=== PATIENT | female | born 1965 | race Caucasian/White ===

== ENCOUNTER 2019-12-10 09:00 | Inpatient (IN) ==
--- OUTSIDE RECORDS SUMMARY | 2019-12-10 12:06 | External Medical Summary | Continuity of Care Document ---
:1965 Author Name North Ramos, Provider Address Unavailable Unavailable , Care Team Providers Name Role Phone Unavailable Unavailable Unavailable VERENICE MCCLELLAND II Unavailable Unavailable Problems Hypertension (401.9) (I10) Migraines (346.90) (G43.909) Depression (311) (F32.9) Osteoarthritis (715.90) (M19.90) Prinzmetal's angina (413.1) (I20.1) Allergies and Adverse Reactions Allergy history not documented Medications traMADol HCl - 50 MG Oral Tablet; TAKE 2 TABLETS EVERY 6 ANGIE RS NEEDED , M.D. Refills: 0 Propranolol HCl ER 80 MG Oral Capsule Ex tended Release 24 Hour; TAKE 1 CAPSULE Daily , M.D. Refills: 0 clonazePAM 0.5 MG Oral Tablet , M.D. Refills: 0 FLUoxetine HCl - 20 MG Oral Capsule , M.D. Refills: 0 Ranexa 500 MG Oral Tablet Extended Relea se 12 Hour; TAKE 1 TABLET EVERY 12 HOURS. , M.D. Refills: 0 Pantoprazole Sodium 40 MG Oral Tablet Delayed Release; TAKE 1 TABLET DAILY. , M.D. Refills: 0 Norvasc 2.5 MG Oral Tablet; TAKE 1 TABLET DAILY. , M.D. Refills: 0 Lisinopril 20 MG Oral Tablet; TAKE 1 TABLET DAILY. , M.D. Refills: 0 Cymbalta CPEP; Take 90mg Daily , M.D. Refills: 0 Zyrtec TABS , M.D. Refills: 0 Multi-Vitamin TABS , M.D. Refills: 0 Effexor XR 75 MG Oral Capsule Extended Release 24 Hour ; TAKE 1 CAPSULE DAILY. , M.D. Refills: 0 Isosorbide Mononitrate ER TB24; TAKE 15MG DAILY , M.D. Refills: 0 Vitamin D3 TABS , M.D. Refills: 0 Procedures History of Hysterectomy Status: Complete d Immunizations DTaP On: 25-Nov-2014 Family History Unknown Family Member Family history of cerebrovascular accident Status: Active Comments: Family History (CVA) (V17.1) (Z82.3) Family history of hypertension (V17.49) Status: Active Comments: Family History (Z82.49) Family history of diabetes mellitus (V18.0) Status: Active Comments: Family History (Z83.3) Family history of spinal stenosis (V17.89) Status: Active Comments: Family History (Z82.69) Father Family history of cerebrovascular accident (CVA) (V17.1) (Z8 2.3) Status: Active Mother Family history of hypertension (V17.49) (Z82.49) Status: Act xin Family history of diabetes mellitus (V18.0) (Z83.3) Status: Active Family history of spinal stenosis (V17.89) (Z82.69) Status: Active Social History - Smoking Status Never smoker Plan of Treatment Planned Observations Planned Goals not documented Results No Known Results Results not documented
[2019-12-10] MEDS ORDERED: ACETAMINOPHEN 325 MG TAB PO PRN (12:46)
[2019-12-10] MEDS ORDERED: ONDANSETRON INJ 2 MG/ML 2 ML VIAL IV PRN (12:46)
--- NOTE | 2019-12-10 13:27 | History & Physical Report ---
Date of Service December 10, 2019 Assessment & Plan (1) Surgical site infection: I have indicated the patient for superficial vs deep I+D right hip, possible revision total hip arthroplasty with head and liner exchange. The risks, benefits and complications of surgery were explained to the patient which include but not limited to infection, acute blood loss, DVT/PE, injury to nerves, vessels, bone, soft tissue, arthrofibrosis, chronic pain, failure of the prosthesis, hip dislocation, leg length discrepancy, need for additional surgery, cardiac and pulmonary events and . The patient wished to proceed with surgery and informed consent was obtained at this time. Hold anticoagulation Hold antibiotics till surgical cultures and tissue samples taken NPO after midnight in anticipation for surgery 12/11/19 History of Present Illness Chief Complaint: Right hip surgical site infection, wound dehiscence Primary Care Provider: Angus Conner The patient is a 53-year-old female who presents with worsening draining from right hip surgical wound. Patient had recent right posterior total hip arthroplasty performed 11/14/[address] eMdrano [place] [facility] [place] The patient had an uneventful postoperative period however, she reports that shazia removed at 2 week and subsequently developed drainage from the incision which has worsened while taking duricef. She was seen in the office 12/09/19 at the request of Dr. Medrano secondary to unavailability to see or care for the patient. Currently the patient denies F/C/N/V/SOB/CP. Denies pain to right hip or trauma. The decision was made to have the patient directly admitted to [facility] for medical optimization and superficial vs deep I+D right hip with possible head and liner exchange. Allergies Allergy/AdvReac Type Severity Reaction Status Date / Time morphine AdvReac Mild itching Verified 12/10/19 15:49 Home Medications Home Medications Medication Instructions Recorded Confirmed Type amitriptyline 25 mg PO DAILY 12/10/19 12/10/19 History amlodipine 2.5 mg PO DAILY 12/10/19 12/10/19 History bupropion HCl 300 mg PO DAILY 12/10/19 12/10/19 History duloxetine 60 mg PO DAILY 12/10/19 12/10/19 History gabapentin 100 mg PO TID 12/10/19 12/10/19 History propranolol 80 mg PO DAILY 12/10/19 12/10/19 History tramadol 50 mg PO Q6H 12/10/19 12/10/19 History Past Med/Surg History Medical History Angina pectoris (~2016) Follow's Dr. Turner Surgical History History of section History of hysterectomy Family History Other Family history of diabetes mellitus ICD (implantable cardioverter-defibrillator) in place Social History Preferred Language: Swedish Communication Ability: Effective Beliefs That Will Affect Care: None marital status: Current Living Situation: Spouse Other Information That Helps Us Care for You: No Feels Safe at Home: Yes Safety Concerns: Feels Safe At This Time Smoking Status: Never smoker Hx Alcohol Use: No Hx Substance Use: No Review of Systems Review of Systems: All systems reviewed & are unremarkable except as noted in HPI & below Constitutional: as per Subjective / HPI Physical Exam Physical Exam: RLE NVSI +EHL/FHL/TA/GS SILT grossly, +2 DP pulse, compartments soft NT, 2cm dehiscence distal aspect of the incision with copious serious drainage. Constitutional: WD/WN, vitals as above Eyes: PERRL, conjunctivae normal, anicteric sclerae ENMT: external ear and nose normal, oropharynx normal Neck: trachea midline, no thyromegaly Respiratory: normal respiratory effort, lungs clear to auscultation Cardiovascular: RRR, no murmur, no edema Gastrointestinal (Abdomen): normal bowel sounds, soft, nontender, no hepatosplenomegaly Musculoskeletal: no cyanosis or clubbing, extremities motor strength 5/5 Skin: no rashes, warm and dry Neurologic: patellar DTR's 2+ bilat, sensation intact Psychiatric: A+Ox3, euthymic affect Lymphatic: no cervical or axillary lymphadenopathy Results & Data Vital Signs (Past 12 Hours) Vital Signs Temp Pulse Resp BP Pulse Ox 12/10/19 12:10 36.3 C L 67 12 123/85 99 Laboratory Results XRs taken at [facility] demonstrate well aligned well fixed total hip prothesis without signs for osteomyelitis, loosening or subsidence, fracture or dislocation Code Status & VTE Plan VTE Prophylaxis Plan VTE Prophylaxis will be ordered: Yes
--- NOTE | 2019-12-10 14:03 | XRay Report ---
XR chest 2V PA/lateral CLINICAL HISTORY: preop preoperative evaluation COMPARISON STUDY: No previous studies for comparison. FINDINGS: The bones soft tissues and hemidiaphragms are normal. The cardiomediastinal silhouette is n ormal. The lungs are clear. The pulmonary vasculature is normal. IMPRESSION: Negative chest. ACT 112: Negative or not required by law. The above report was generated using voice recognition software. It may contain grammatical, syntax or spelling errors. Electronically signed by: Diego Melvin M.D. 12/10/2019 2:02 PM
[2019-12-10] MEDS: GABAPENTIN 100 MG CAP PO SCH ×2 (14:16→20:55)
[2019-12-10] MEDS: SODIUM CHLORIDE 0.9% 1000ML 1,000 ML IV SCH (14:39)
[2019-12-10 14:50] LABS: Basophils # (auto) 0.02 K/uL (0-0.2); Basophils % (auto) 0.4 %; Eosinophils # (auto) 0.44 K/uL (0-0.5); Eosinophils % (auto) 7.8 %; Hematocrit (blood only) 38.3 % (37-47); Hemoglobin 12.7 g/dL (12.0-16.0); Immature Granulocytes # (auto) 0.01 K/uL (0.00-0.02); Immature Granulocytes % (auto) 0.2 %; Lymphocytes # (auto) 2.35 K/uL (1.2-3.4); Lymphocytes % (auto) 41.6 %; Mean Corpuscular Hemoglobin 28.7 pg (25-34); Mean Corpuscular Hgb Conc 33.2 g/dL (32-36); Mean Corpuscular Volume 86.7 fL (80-100); Mean Platelet Volume 9.2 fL (7.4-10.4); Monocytes # (auto) 0.52 K/uL (0.11-0.59); Monocytes % (auto) 9.2 %; Neutrophils # (auto) 2.31 K/uL (1.4-6.5); Neutrophils % (auto) 40.8 %; Platelet Count 166 K/uL (130-400); RDW Coefficient of Variation 13.1 % (11.5-14.5); RDW Standard Deviation 41.3 fL (36.4-46.3); Red Blood Count 4.42 M/uL (4.2-5.4); White Blood Count 5.65 K/uL (4.8-10.8)
[2019-12-10 15:06] LABS: BUN Creatinine Ratio 25.7 (10-20); Creatinine Clr Calc Pharmacy 120.6 ml/min; Est GFR (African American) 113.5; Est GFR (Non-African American) 97.9; Potassium 3.7 mmol/L (3.5-5.1)
--- NOTE | 2019-12-10 15:57 | Hospitalist Consultation ---
Date of Consultation December 10, 2019 Assessment & Plan (1) Surgical site infection: for I&D tomorrow with orthopedics of the right hip Patient does not have cardiac history, she had a cardiac cath in 2016 that she says was normal. This catheterization was for complaints of chest pain which was attributed to anxiety for which she is now receiving treatment and has resolved. She has good exercise tolerance, able to climb a flight of stairs and walk across a parking lot, never has chest pain on exertion. Lab work is unremarkable. EKG showing NSR. Negative CXR. Patient is optimized for surgery and is low risk (2) Anxiety: Continue duloxetine and bupropion (3) Fibromyalgia: Continue duloxetine, amtriptyline, (4) Hypertension: Continue amlodipine and propranolol (5) Diarrhea: May be secondary to antibiotics but will check a Cdiff Supervising Physician Co-Signing Physician Notes I supervised Emmy Guaman NP on this patient's care. I examined the patient today independently of her. I discussed the plan of care with her with the plan being as written in her note except for any following changes/exceptions: None. Doing well today, though has some stress regarding her [id number]. Overall, doing well and ready for surgery. History of Present Illness Attending Physician: Franklin Ho DO History of Present Illness Ms. Oh is here for incision and drainage of her hip arthroplasty that she had recently had done which has had increased drainage. She denies any aches or chill, sob, cough, chest pain, nausea, vomiting, or other pain. She does have some diarrhea with recent antibiotic use. 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 Family: stroke, DMII, A.fib, htn Allergies Allergy/AdvReac Type Severity Reaction Status Date / Time morphine AdvReac Mild itching Verified 12/10/19 15:49 Home Medications Home Medications Medication Instructions Recorded Confirmed Type amitriptyline 25 mg PO DAILY 12/10/19 12/10/19 History amlodipine 2.5 mg PO DAILY 12/10/19 12/10/19 History bupropion HCl 300 mg PO DAILY 12/10/19 12/10/19 History duloxetine 60 mg PO DAILY 02/18/20 02/18/20 History gabapentin 100 mg PO TID 12/10/19 12/10/19 History propranolol 80 mg PO DAILY 12/10/19 12/10/19 History tramadol 50 mg PO Q6H 12/10/19 12/10/19 History Patient History Medical History Angina pectoris (~2016) Follow's Dr. Turner Surgical History History of section History of hysterectomy Family History Other Family history of diabetes mellitus ICD (implantable cardioverter-defibrillator) in place Social History Preferred Language: Slovak Communication Ability: Effective Beliefs That Will Affect Care: None Current Living Situation: Spouse Other Information That Helps Us Care for You: No Feels Safe at Home: Yes Safety Concerns: Feels Safe At This Time Smoking Status: Never smoker Hx Alcohol Use: No Hx Substance Use: No Review of Systems Review of Systems: All systems reviewed & are unremarkable except as noted in HPI & below Physical Exam Physical Exam: General: no distress Eyes: normal inspection, PERLL Respiratory: chest non tender, clear to auscultation, normal breath sounds, no respiratory distress, no accessory muscle use Cardiac: regular rate and rhythm, no rub or gallop, no murmur, no edema, no jvd GI/: active bowel sounds, no abd pain or tenderness, soft, non distended Extremities: normal range of motion, normal strength, non tender Neuro/Psych: alert and oriented x 3, normal mood and affect Skin: normal color, dry Results & Data ([facility]) Vital Signs (Past 12 Hours) Vital Signs Temp Pulse Resp BP Pulse Ox 12/10/19 15:41 36.7 C 67 16 130/81 97 12/10/19 12:10 36.3 C L 67 12 123/85 99 PG Care Time/CCT Total # of Minutes Spent Total Time Spent with Patient: Total time spent is greater than 50% in coordination of care (as documented) at patient's floor/unit and/or counseling patient: Coding Level of Care Code 99841 Inpt Consult Level 4 Diagnoses Surgical site infection T81.49XA Anxiety F41.9 Fibromyalgia M79.7 Hypertension I10 Diarrhea R19.7
[2019-12-10 17:34] LABS: Appearance Urine Cloudy (Clear); Bilirubin Urine Negative (Negative); Blood Urine Negative (Negative); Color Urine Dark Yellow; Epithelial Cell Urine Auto >30 /lpf (0-5); Glucose Urine UA Negative (Negative); Ketones Urine Negative (Negative); Leukocyte Esterase Urine Negative (Negative); Nitrite Urine Negative (Negative); Protein Urine Negative (Negative); RBC Urine Automated 0-4 /hpf (0-4); Specific Gravity Urine 1.034 (1.000-1.030); Urobilinogen Urine Negative (Negative)
[2019-12-10 17:45] LABS: Mucus Urine Present (None Prsent)
[2019-12-10 17:46] LABS: Bacteria Urine Automated 1+ (Negative); Calcium Oxalate Crystals Urine Present (None Prsent)
--- NOTE | 2019-12-10 17:52 | Anesthesiology Consultation ---
Date of Service December 10, 2019 Assessment & Plan (1) Encounter for pre-operative examination: Chart Review Chart Review: Acceptable Risk for Surgery, Patient NOT seen in Pre Admission Testing and entry table operator initiated Consults Requested none Additional Notes 54 yo [place] [facility] [place] and now scheduled for IanD/possible revision with Dr. Kaur. PMH significant for HTN, fibromyalgia and anxiety. Per notes in chart, patient had a negative cardiac cath in 2015 which was performed for chest pain, but was determined to be from anxiety. History Surgery Operation Date: 12/11/19 07:00 Proposed Procedures p Right Hip Incision and Drainage, Possibly Poly Liner Exchange, Possible Femoral Head Exchange - Franklin Ho, Height/Weight Height: 5 ft 7 in Weight: 113.63 kg Allergies Allergy/AdvReac Type Severity Reaction Status Date / Time morphine AdvReac Mild itching Verified 12/10/19 15:49 Medications Home Medications Medication Instructions Recorded Confirmed Last Taken amitriptyline 25 mg PO DAILY 12/10/19 12/10/19 Unknown amlodipine 2.5 mg PO DAILY 12/10/19 12/10/19 Unknown bupropion HCl 300 mg PO DAILY 12/10/19 12/10/19 Unknown duloxetine 60 mg PO DAILY 12/10/19 12/10/19 Unknown gabapentin 100 mg PO TID 12/10/19 12/10/19 Unknown propranolol 80 mg PO DAILY 12/10/19 12/10/19 Unknown tramadol 50 mg PO Q6H 12/10/19 12/10/19 Unknown Active Medications Generic Name Dose Route Start Last Admin Trade Name Pradeepq PRN Reason Stop Dose Admin Gabapentin 100 mg 12/10/19 14:00 12/10/19 14:16 Neurontin PO 01/09/20 13:59 100 mg TID IKE Administration Sodium Chloride 1,000 mls @ 15 mls/hr 12/10/19 13:15 12/10/19 14:39 Nss 1000ml IV 01/09/20 13:14 15 mls/hr .Q24H IKE Administration KVO Past Medical History Medical History Angina pectoris (~2015) Follow's Dr. Turner Exercise / Class Metabolic Activity II 4-5 Yardwork/Stairs/Walk up hill Negative for chest pain or shortness of breath. Past Family History Family History Other Family history of diabetes mellitus ICD (implantable cardioverter-defibrillator) in place Past Surgical History Surgical History History of section History of hysterectomy Social History Smoking Status: Never smoker Hx Alcohol Use: No Hx Substance Use: No Physical Exam Vital Signs Last Vital Signs Temp 36.7 C 12/10/19 15:41 Pulse 67 12/10/19 15:41 Resp 16 12/10/19 15:41 BP 130/81 12/10/19 15:41 Pulse Ox 97 12/10/19 15:41 Testing Laboratory Results 12/10/19 14:37 12/10/19 14:37 Urine Color Dark Yellow 12/10/19 Unknown Urine Appearance Cloudy (Clear) A 12/10/19 Unknown Urine pH 5.0 (4.5-7.5) 12/10/19 Unknown Ur Specific [place] 1.034 (1.000-1.030) H 12/10/19 Unknown Urine Protein Negative (Negative) 12/10/19 Unknown Urine Glucose (UA) Negative (Negative) 12/10/19 Unknown Urine Ketones Negative (Negative) 12/10/19 Unknown Urine Nitrite Negative (Negative) 12/10/19 Unknown Ur Leukocyte Esterase Negative (Negative) 12/10/19 Unknown Urine WBC (Auto) 1-5 /hpf (0-5) 12/10/19 Unknown Urine RBC (Auto) 0-4 /hpf (0-4) 12/10/19 Unknown U Hyaline Cast (Auto) 5-10 /lpf (0-5) H 12/10/19 Unknown U Epithel Cells (Auto) >30 /lpf (0-5) H 12/10/19 Unknown Urine Bacteria (Auto) 1+ (Negative) H 12/10/19 Unknown Blood Type O Positive 12/10/19 14:37 Antibody Screen NEGATIVE 12/10/19 14:37 Electrocardiogram Date: 12/10/19 Findings: + NSR @ (70) minimal voltage criteria for LVH, may be normal variant, nonspecific T wave abnormality
--- NOTE | 2019-12-10 19:52 | XRay Report ---
XR hip 1V RT w pelvis CLINICAL HISTORY: surgical site infection COMPARISON: None. DISCUSSION: There are postsurgical changes of a total right hip arthroplasty. The acetabular femoral components appear well seated. No acute fractures or dislocations are visualized. There is no gas pre sent within the soft tissues. IMPRESSION: Total right hip arthroplasty. No significant abnormalities identified. ACT 112: Negative or not required by law. Electronically signed by: Lester Medina M.D. 12/10/2019 7:51 PM
[2019-12-10] MEDS: AMITRIPTYLINE HCL 25 MG TAB PO SCH (20:54)
[2019-12-10] MEDS: AMLODIPINE BESYLATE 5 MG TAB PO SCH (20:54)
[2019-12-10] MEDS: PROPRANOLOL HCL 80 MG TAB PO SCH (20:54)
--- NOTE | 2019-12-10 22:15 | Electrocardiogram Report ---
Test Reason : Blood Pressure : / mmHG Vent. Rate : 070 BPM Atrial Rate : 070 BPM P-R Int : 132 ms QRS Dur : 084 ms QT Int : 420 ms P-R-T Axes : 028 006 006 degrees QTc Int : 453 ms Normal sinus rhythm Minimal voltage criteria for LVH, may be normal variant Nonspecific T wave abnormality Abnormal ECG No previous ECGs available Confirmed by Kevin Barnes ([id number]) on 12/10/2019 10:14:40 PM Referred By: Franklin Ho Confirmed By:Kevin Barnes
[2019-12-11] MEDS ORDERED: CEFAZOLIN 2000MG 2,000 MG/15 ML SYR IV SCH (06:00)
[2019-12-11 07:01] LABS: Prothrombin Time 10.7 Seconds (9.0-12.0)
[2019-12-11] MEDS: GABAPENTIN 100 MG CAP PO SCH ×3 (07:39→21:50)
[2019-12-11] MEDS: DULOXETINE HCL 60 MG CAP PO SCH (07:39)
[2019-12-11] MEDS: BuPROPion XL 300 MG TABCR PO SCH (07:39)
[2019-12-11] MEDS: PANTOprazole 40 MG TAB PO SCH (07:39)
[2019-12-11] MEDS ORDERED: MIDAZOLAM HCL 1 MG/ML 2ML VIAL ONE (13:09)
[2019-12-11] MEDS ORDERED: fentaNYL citrate 100 MCG/2 ML VIAL ONE (13:09)
[2019-12-11] MEDS ORDERED: BACITRACIN INJ 50,000 UNIT VIAL ONE ×2 (13:14→13:57)
[2019-12-11] MEDS ORDERED: BUPIVACAINE 0.5 % 5 MG/1 ML MPF 30ML VIAL ONE (13:14)
--- NOTE | 2019-12-11 13:17 | History & Physical Bridge Note ---
Date of Service December 11, 2019 History & Physical Bridge Note I have examined the patient, reviewed the History & Physical and in the interval since the performance of the History & Physical I have noted the following changes of clinical significance: no changes noted
[2019-12-11] MEDS ORDERED: PROPOFOL IV EMULSION 10 MG/ML 20 ML VIAL IV ONE (14:13)
[2019-12-11] MEDS ORDERED: ONDANSETRON INJ 2 MG/ML 2 ML VIAL ONE (14:13)
[2019-12-11] MEDS ORDERED: ROCURONIUM BROMIDE 10 MG/ML 5 ML VIAL ONE (14:13)
[2019-12-11] MEDS ORDERED: NEOSTIGMINE METHYLSULFATE 5 MG/5 ML SYR ONE (14:13)
[2019-12-11] MEDS ORDERED: ePHEDrine sulfate 50 MG/ML SYR ONE (14:13)
[2019-12-11] MEDS ORDERED: GLYCOPYRROLATE 0.2 MG/ML VIAL ONE (14:13)
[2019-12-11] MEDS ORDERED: LIDOCAINE HCL 2% 2 ML VIAL/AMP(20MG/ML) INFIL ONE (14:13)
[2019-12-11] MEDS ORDERED: PHENYLEPHRINE 100MCG/ML 5ML SYR ONE (14:13)
[2019-12-11] MEDS ORDERED: fentaNYL citrate 100 MCG/2 ML VIAL IV PRN (14:32)
[2019-12-11] MEDS ORDERED: ATROPINE SULFATE 0.1 MG/ML 10ML SYR IV PRN (14:32)
[2019-12-11] MEDS ORDERED: ONDANSETRON INJ 2 MG/ML 2 ML VIAL IV PRN ×2 (14:32→17:38)
[2019-12-11] MEDS ORDERED: ePHEDrine sulfate 50 MG/ML AMP IV PRN (14:32)
[2019-12-11] MEDS ORDERED: VANCOMYCIN CONSULT ACTIVE PRN ×2 (14:45→17:38)
--- NOTE | 2019-12-11 14:48 | Hospitalist Progress Note ---
Date of Service December 11, 2019 Assessment & Plan (1) Surgical site infection: for I&D 12/11 with orthopedics of the right hip Pain control, dvt proph per surgery (2) Anxiety: Continue duloxetine and bupropion (3) Fibromyalgia: Continue duloxetine, amtriptyline, (4) Hypertension: Continue amlodipine and propranolol (5) Diarrhea: No bms since admission Admission and Anticipated Discharge Date Admission Date: December 10, 2019 Subjective To go to the OR this afternoon for I&D of hip. No complaints today. ROS Constitutional: no chills, aches, sweats or fever Respiratory: no sob,cough, sputum, or wheezing Cardiac: no chest pain, palpitations, edema, orthopnea or lightheadedness GI: no abdominal pain, nausea, vomiting, diarrhea or constipation : no dysuria or hesitancy Extremities: no joint pain or weakness Skin: no rash All other systems reviewed and negative Physical Exam Physical Exam: General: no distress Eyes: normal inspection, PERLL Respiratory: chest non tender, clear to auscultation, normal breath sounds, no respiratory distress, no accessory muscle use Cardiac: regular rate and rhythm, no rub or gallop, no murmur, no edema, no jvd GI/: active bowel sounds, no abd pain or tenderness, soft, non distended Extremities: normal range of motion, normal strength, non tender Neuro/Psych: alert and oriented x 3, normal mood and affect Skin: normal color, dry Results & Data ([facility]) Vital Signs (Past 12 Hours) Vital Signs Temp Pulse Pulse Resp BP Pulse Ox 12/11/19 11:49 37.1 C 64 20 129/74 97 12/11/19 07:54 36.5 C 62 19 122/80 95 12/11/19 07:06 36.9 C 59 L 16 122/78 99 PG Care Time/CCT Total # of Minutes Spent Total Time Spent with Patient: Total time spent is greater than 50% in coordination of care (as documented) at patient's floor/unit and/or counseling patient: Coding Level of Care Code 31465 Subseq Hosp Care Lvl 2 Diagnoses Surgical site infection T81.49XA Anxiety F41.9 Fibromyalgia M79.7 Hypertension I10 Diarrhea R19.7
[2019-12-11] MEDS ORDERED: VANCOMYCIN HCL 1,750 MG in SODIUM CHLORIDE 0.9% 500 ML IV ONE (15:00)
--- NOTE | 2019-12-11 15:15 | Post Operative Brief Note ---
Immediate Post Op Note v1 Date of Surgery December 11, 2019 Pre & Post Diagnosis Operation Date: 12/11/19 07:00 Pre-Op Diagnosis: Right Hip Wound Dehiscence Post-Op Diagnosis: Right Hip Wound Dehiscence I identified the patient and participated in the time-out.: Yes Procedure Operation Date: 12/11/19 07:00 Actual Procedures p Revision right total hip arthroplasty - head and liner exchange, superficial and deep irrigation and debridement (Right), excision of surgical incision - Franklin Ho DO Surgeon Franklin Ho DO Cardiopulmonary Supervisor Guy Garcia Estimated Blood Loss 150 Findings Consistent with Post-Op Diagnosis Fluids 900 cc LR Specimens Superficial culture x2 Deep Culture x3 Deep tissue x 2 Drains Hemovac Drain (x2 deep to facia ) Anesthesia Type General Complications none Disposition Disposition: Recovery Room Overlapping Procedure I was present for: the critical portions of procedure. I was immediately available: during the entire case. Back up surgeon: was not required during procedure.
--- NOTE | 2019-12-11 15:23 | Operative Report ---
Post Operative Report Pre & Post Diagnosis Operation Date: 12/11/19 07:00 Pre-Op Diagnosis: Right Hip Wound Dehiscence Post-Op Diagnosis: Right Hip Wound Dehiscence I identified the patient and participated in the time-out.: Yes Procedure Operation Date: 12/11/19 07:00 Actual Procedures p Revision right total hip arthroplasty, head and liner exchange, superficial and deep irrigation and debridement, excision of surgical incision (Right) - Franklin Ho DO Surgeon Franklin Ho, Custom Bike Builder Guy Garcia Estimated Blood Loss 150 Findings Consistent with Post-Op Diagnosis Fluids 900 cc LR Specimens Superficial cultures x 2 Deep cultures x 3 Tissue cultures - deep x 2 Drains Hmv x 2 deep to fascia Anesthesia Type General Complications none Disposition Disposition: Recovery Room Indications The patient is a 53-year-old female who presents with worsening draining from right hip surgical wound. Patient had recent right posterior total hip arthroplasty performed 11/14/[address] Medrano at [facility]. The patient had an uneventful postoperative period however, she reports that shazia removed at 2 week and subsequently developed drainage from the incision which has worsened while taking duricef. She was seen in the office 12/09/19 at the request of Dr. Medrano secondary to unavailability to see or care for the patient. Currently the patient denies F/C/N/V/SOB/CP. Denies pain to right hip or trauma. The decision was made to have the patient directly admitted to [facility] for medical optimization and superficial vs deep I+D right hip with possible head and liner exchange. I have indicated the patient for superficial vs deep I+D right hip, possible revision total hip arthroplasty with head and liner exchange. The risks, benefits and complications of surgery were explained to the patient which include but not limited to infection, acute blood loss, DVT/PE, injury to nerves, vessels, bone, soft tissue, arthrofibrosis, chronic pain, failure of the prosthesis, hip dislocation, leg length discrepancy, need for additional surgery, cardiac and pulmonary events and . The patient wished to proceed with surgery and informed consent was obtained at this time. Description of Procedure Following induction of adequate general anesthesia, the patient was transferred to the OR table and placed in lateral decubitus position with left hip down. The right hip was prepped and draped in the typical sterile fashion utilizing Betadine solution. A time out was performed, patient and site lori verified. Antibiotics were held prior to the start of the case. A posterolateral/Rebecca- [place]en[place] incision was made in line with the previous incision. The previous surgical scar was excised. Subcutaneous tissue was sharply dissected down to fascia. Electrocautery was utilized for hemostasis. A large seroma was appreciated. Cultures were taken at this time. Meticulous removal of fibrous soft tissue, necrotic tissue and retained suture was performed utilizing scalpel, rongeur and curets. The fascia was carefully assessed and a small defect was found middle 1/3rd aspect. The fascia was incised throughout the length of the wound and retracted with the Charnley retractor. The short external rotators and capsule were divided from the posterior aspect of the femur using electrocautery. Both external rotators and posterior capsule were swept posterior and protected, along with protecting the sciatic nerve. Total hip prosthesis was identified and two intra-articular cultures were obtained. Meticulous removal of intra-articular scar tissue was performed with bovie. All remaining suture was removed. The hip prosthesis was dislocated by flexion and internal rotation in a controlled manner. The femoral head was removed from the trunion, which was clean and was without signs of wear. The femoral stem stability assessed and found to be stable without signs of loosening. Next, exposure of the acetabulum was obtained. Additional scar tissue removal and debridement of the intra-articular soft tissue was performed. Two tissue cultures were sent at this time. Utilizing the liner extraction tool the liner was removed. A culture culture was obtained of the acetabular component. Acetabular cup stability was assessed and found to be stable and without signs of loosening. Next, a 56 trail liner was inserted and locked into place. A 36+7.5 femoral head was placed onto the stem and a trial reduction was carried out. The hip was found to be stable in all degrees of rotation with hip flexion and extension with no impingement and leg lengths were equal. The hip was dislocated once more, trial components were removed and access to the acetabulum was re-established. The trial liner was removed and a Betadine soak was performed for 3 minutes. The hip was then irrigated with copious amounts of sterile saline solution with bacitracin. A final Trident X3 56 x 36 mm acetabular liner with elevated rim was inserted and properly seated. Access to the proximal femur was once more gained and the final 36+7.5 mm femoral head was impacted into place and the hip was reduced. Range of motion was checked once again and found to be stable. The wound was copiously irrigated with sterile saline solution with bacitracin, 9 L in total. Hemovac drain was placed deep and superficial to the fascial layer. The fascia was closed using 0 PDS, subcutaneous tissue was closed using 2-0 PDS, and skin was closed with [place]. Sterile dressings were applied which included drain sponge , foam tape and Reyna incisional VAC. A abduction pillow was placed between the legs. The patient tolerated the procedure well and was transported to PACU in stable condition. Due to the complex nature of the procedure, the entire surgery was performed with the operational assistance of Guy Garcia PA-C. The general assistant, under direct supervision, was involved in the actual performance of all aspects of the surgical procedure including patient positioning, hemostasis, tissue retraction, instrument management and wound closure. I attest to the content of the Intraoperative Record and any orders documented therein. Any exceptions are noted below.
[2019-12-11] MEDS ORDERED: HYDROmorphone INJ 2 MG/ML SYR/VIAL ONE (15:30)
--- NOTE | 2019-12-11 16:57 | Anesthesiology Progress Note ---
Date of Service December 11, 2019 Anesthesia Post Procedure Vital Signs Vital Signs: Temp Pulse Pulse Resp BP Pulse Ox 12/11/19 16:55 67 18 108/69 100 12/11/19 16:45 67 12 122/59 L 100 12/11/19 16:35 36.3 C L 71 15 105/64 99 12/11/19 16:25 70 12 123/70 99 12/11/19 16:15 71 18 142/75 H 100 12/11/19 16:05 65 19 103/63 99 12/11/19 15:55 36.6 C 66 22 106/67 100 12/11/19 11:49 37.1 C 64 20 129/74 97 12/11/19 07:54 36.5 C 62 19 122/80 95 12/11/19 07:06 36.9 C 59 L 16 122/78 99 12/10/19 23:42 36.8 C 58 L 14 111/71 96 Pain Intensity Right Hip: Pain Intensity: 3 Transfer of Care Handoff Completed per policy Notes Mental Status: alert / awake / arousable and participated in evaluation Patient Amnestic to Procedure: Yes Nausea / Vomiting: adequately controlled Pain: adequately controlled Airway Patency, RR, SpO2: stable & adequate BP & HR: stable & adequate Hydration State: stable & adequate Anesthetic Complications: no major complications apparent
--- NOTE | 2019-12-11 16:59 | XRay Report ---
XR hip 1V RT w pelvis CLINICAL HISTORY: Postop examination COMPARISON: 12/10/2019 DISCUSSION: There are postsurgical changes of a total right hip arthroplasty. There are overlying ski n shazia and surgical drains. There is trace air in soft tissues. No fractures or dislocations are v isualized. IMPRESSION: Total right hip arthroplasty. No fractures or dislocations identified ACT 112: Negative or not required by law. Electronically signed by: Lester Medina M.D. 12/11/2019 4:57 PM
[2019-12-11] MEDS ORDERED: bisacodyL 10 MG SUPP PR PRN (17:38)
[2019-12-11] MEDS ORDERED: HYDROmorphone INJ 0.5 MG/0.5 ML SYR IV PRN (17:38)
[2019-12-11] MEDS ORDERED: OXYCODONE HCL IR 5 MG TAB (IMMEDIATE RELEASE) PO PRN (17:38)
[2019-12-11] MEDS ORDERED: VANCOMYCIN HCL 1,750 MG in SODIUM CHLORIDE 0.9% 250 ML IV SCH (17:38)
[2019-12-11] MEDS ORDERED: METOCLOPRAMIDE HCL INJ 5 MG/ML 2 ML VIAL IV PRN (17:38)
[2019-12-11] MEDS ORDERED: MAGNESIUM HYDROXIDE SUSP 30 ML UDC PO PRN (17:38)
[2019-12-11] MEDS ORDERED: NALOXONE HCL 0.4 MG/1 ML VIAL/CARP IV PRN (17:38)
--- NOTE | 2019-12-11 17:39 | Orthopedic Progress Note ---
Date of Service December 11, 2019 Assessment & Plan (1) Surgical site infection: s/p I+D, revision right hip with head and liner exchange, excision of scar -ancef/vanco -DVT ppx: SCDs, TEDs, ASA 81mg BID -WBAT RLE -PT/OT -monitor drain output -PO XR demonstrates well aligned well fixed total hip prothesis without fracture/dislocation -am labs -f/u IO cultures Admission and Anticipated Discharge Date Admission Date: December 10, 2019 Subjective Post Operative Progress Note Patient seen in PACU, comfortable, denies complaints, pain well controlled, no acute issues. Review of Systems Review of Systems: All systems reviewed & are unremarkable except as noted in HPI & below Constitutional: as per Subjective / HPI Physical Exam Physical Exam: RLE NVSI +EHL/FHL/TA/GS SILT grossly, +2 DP pulse, compartments soft NT, dressing cdi. HMV drain intact Constitutional: WD/WN, vitals as above Results & Data ([place]) Vital Signs (Past 12 Hours) Vital Signs Temp Pulse Pulse Resp BP Pulse Ox 12/11/19 17:05 67 12 123/72 96 12/11/19 16:55 67 18 108/69 100 12/11/19 16:45 67 12 122/59 L 100 12/11/19 16:35 36.3 C L 71 15 105/64 99 12/11/19 16:25 70 12 123/70 99 12/11/19 16:15 71 18 142/75 H 100 12/11/19 16:05 65 19 103/63 99 12/11/19 15:55 36.6 C 66 22 106/67 100 12/11/19 11:49 37.1 C 64 20 129/74 97 12/11/19 07:54 36.5 C 62 19 122/80 95 12/11/19 07:06 36.9 C 59 L 16 122/78 99
[2019-12-11] MEDS: SODIUM CHLORIDE 0.9% 1000ML 1,000 ML IV SCH ×2 (18:06→18:57)
[2019-12-11] MEDS: KETOROLAC TROMETHAMINE 15 MG/ML VIAL IV SCH ×2 (18:53→23:07)
--- NOTE | 2019-12-11 20:14 | Pharmacy Report ---
Pharmacy Abx Initial Consult - Date of Service December 11, 2019 - Pharmacy Dosing Scope Date of Consult: 12/11 Consultation requested by: Dr. Ho Pharmacy is consulted to initiate vancomycin IV/PO dosing therapy, order appropriate labs and adjust drug dose/frequency. - Subjective The patient is a 54 year old F admitted on 12/10/19 11:59. - Objective Height: 5 ft 7 in Weight: 113.63 kg Vital Signs (Past 12hrs): Vital Signs Temp Pulse Pulse Resp BP Pulse Ox 12/11/19 19:35 36.8 C 79 18 106/68 95 12/11/19 18:36 36.6 C 63 17 107/68 97 12/11/19 18:05 36.5 C 60 18 115/73 95 12/11/19 17:05 67 12 123/72 96 12/11/19 16:55 67 18 108/69 100 12/11/19 16:45 67 12 122/59 L 100 12/11/19 16:35 36.3 C L 71 15 105/64 99 12/11/19 16:25 70 12 123/70 99 12/11/19 16:15 71 18 142/75 H 100 12/11/19 16:05 65 19 103/63 99 12/11/19 15:55 36.6 C 66 22 106/67 100 12/11/19 11:49 37.1 C 64 20 129/74 97 Micro Results: 12/11/19 14:40 Gram Stain - Pending Hip,Right Aerobic and Anaerobic Culture - Pending 12/11/19 14:30 Gram Stain - Pending Hip,Right Aerobic and Anaerobic Culture - Pending 12/11/19 14:30 Gram Stain - Pending Hip,Right Aerobic and Anaerobic Culture - Pending 12/11/19 14:30 Gram Stain - Pending Hip,Right Aerobic and Anaerobic Culture - Pending 12/11/19 14:30 Gram Stain - Pending Hip,Right Aerobic and Anaerobic Culture - Pending 12/11/19 14:20 Gram Stain - Pending Hip,Right Aerobic and Anaerobic Culture - Pending 12/11/19 14:20 Gram Stain - Pending Hip,Right Aerobic and Anaerobic Culture - Pending - Assessment & Plan Assessment 54 year old female with possible surgical site infection. S/p hip repair 11/14/19 and developing drainage from area. Had I&D today. Cultures are pending at this time. Also ordered ancef for possible infection Plan Vancomycin IV * Patient received preop dose of vancomycin 1750 mg x 1 today * Ordered as ongoing therapy postop - will begin maintenance dose of vancomycin 1500 mg (~13 mg/kg) iv q 8 hrs to achieve an estimated trough ~15-20 mcg/ml (goal for joint infection) * Will plan to obtain a trough prior to the 1500 dose on 12/12 to ensure therapeutic - of note patient with BMI >35 kg/m2, therefore at increased risk for accumulation with vancomycin * Estimated kinetics: t1/2~7hrs, ke~0.087 hr-1, CrCl >100 (used max CrCl of 100 ml/min to estimate kinetics) Pharmacy will continue to follow and will adjust dose/frequency as necessary. Thank you.
[2019-12-11] MEDS ORDERED: GABAPENTIN 100 MG CAP PO SCH (21:00)
[2019-12-11] MEDS: ACETAMINOPHEN 500 MG TAB PO SCH (21:50)
[2019-12-11] MEDS: AMITRIPTYLINE HCL 25 MG TAB PO SCH (21:50)
[2019-12-11] MEDS: PROPRANOLOL HCL 80 MG TAB PO SCH (21:50)
[2019-12-11] MEDS: ASPIRIN 81 MG ECTAB PO SCH (21:50)
[2019-12-11] MEDS: DOCUSATE SODIUM 100 MG CAP PO SCH (21:50)
[2019-12-11] MEDS: SENNA 8.6 MG TAB PO SCH (21:51)
[2019-12-11] MEDS: AMLODIPINE BESYLATE 5 MG TAB PO SCH (21:51)
[2019-12-11] MEDS: CEFAZOLIN 2000MG 2,000 MG/15 ML SYR IV SCH (21:53)
[2019-12-11] MEDS: VANCOMYCIN HCL 1,500 MG in SODIUM CHLORIDE 0.9% 500 ML IV SCH (23:07)
[2019-12-12] MEDS: ACETAMINOPHEN 500 MG TAB PO SCH ×3 (05:37→22:56)
[2019-12-12] MEDS: KETOROLAC TROMETHAMINE 15 MG/ML VIAL IV SCH ×4 (05:37→23:00)
[2019-12-12] MEDS: CEFAZOLIN 2000MG 2,000 MG/15 ML SYR IV SCH ×2 (05:37→13:20)
[2019-12-12] MEDS: SODIUM CHLORIDE 0.9% 1000ML 1,000 ML IV SCH (06:27)
[2019-12-12] MEDS: VANCOMYCIN HCL 1,500 MG in SODIUM CHLORIDE 0.9% 500 ML IV SCH ×2 (06:42→14:33)
[2019-12-12 07:36] LABS: Basophils # (auto) 0.02 K/uL (0-0.2); Basophils % (auto) 0.3 %; Eosinophils # (auto) 0.54 K/uL (0-0.5); Eosinophils % (auto) 7.3 %; Hematocrit (blood only) 35.5 % (37-47); Hemoglobin 11.7 g/dL (12.0-16.0); Immature Granulocytes # (auto) 0.01 K/uL (0.00-0.02); Immature Granulocytes % (auto) 0.1 %; Lymphocytes # (auto) 1.42 K/uL (1.2-3.4); Lymphocytes % (auto) 19.2 %; Mean Corpuscular Volume 87.9 fL (80-100); Mean Platelet Volume 9.2 fL (7.4-10.4); Monocytes # (auto) 0.86 K/uL (0.11-0.59); Monocytes % (auto) 11.6 %; Neutrophils # (auto) 4.56 K/uL (1.4-6.5); Neutrophils % (auto) 61.5 %; Platelet Count 156 K/uL (130-400); RDW Coefficient of Variation 13.3 % (11.5-14.5); RDW Standard Deviation 42.8 fL (36.4-46.3); Red Blood Count 4.04 M/uL (4.2-5.4); White Blood Count 7.41 K/uL (4.8-10.8)
[2019-12-12 08:06] LABS: BUN Creatinine Ratio 16.2 (10-20); Creatinine Clr Calc Pharmacy 99.6 ml/min; Est GFR (Non-African American) 77.7; Potassium 4.1 mmol/L (3.5-5.1)
[2019-12-12] MEDS: DOCUSATE SODIUM 100 MG CAP PO SCH ×2 (08:20→20:10)
[2019-12-12] MEDS: ASPIRIN 81 MG ECTAB PO SCH ×2 (08:20→20:10)
[2019-12-12] MEDS: MULTIVITAMIN TAB PO SCH (08:20)
[2019-12-12] MEDS: DULOXETINE HCL 60 MG CAP PO SCH (08:21)
[2019-12-12] MEDS: BuPROPion XL 300 MG TABCR PO SCH (08:21)
[2019-12-12] MEDS: GABAPENTIN 100 MG CAP PO SCH ×3 (08:21→20:10)
[2019-12-12] MEDS: PANTOprazole 40 MG TAB PO SCH (08:21)
[2019-12-12] MEDS ORDERED: AMLODIPINE BESYLATE 5 MG TAB PO SCH (09:00)
[2019-12-12] MEDS ORDERED: AMITRIPTYLINE HCL 25 MG TAB PO SCH (09:00)
[2019-12-12] MEDS ORDERED: PROPRANOLOL HCL LA 80 MG CAPCR PO SCH (09:00)
[2019-12-12] MEDS ORDERED: DULOXETINE HCL 60 MG CAP PO SCH (09:00)
[2019-12-12] MEDS ORDERED: BuPROPion XL 300 MG TABCR PO SCH (09:00)
--- NOTE | 2019-12-12 09:47 | Infectious Disease Consult ---
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 follow cultures, may be negative as patient was on prolonged course of Keflex prior to admission. will need 6 weeks IV abx, final will be determined by culture results. Continue vanco for now, maintain trough 15-20. I will be away until 12/16, if any additional ID concerns, will require transfer. History of Present Illness Attending Physician: Franklin Ho DO pt admitted after drainage from right hip, had thr on 11/14, did well post op but states she was d/c on Keflex and was taking since time of initial surgery. she had shazia removed a few weeks ago and since then has had bloody/purulent drainage from hip. no pain, no f/c. continued on keflex up until admission to hospital. went to OR yesterday for washout, vac in place, drains in place. tolerated well. having post op pain. remains afebrile. wbc normal. Several OR cultures obtained, gram stain mod-many wbc, no organisms, cultures pending. on vanco and ancef, tolerating well. CXR negative, UA negative. no abd pain, no n/v/d. no cp, sob, cough. only complaint is post op pain. Allergies Allergy/AdvReac Type Severity Reaction Status Date / Time morphine AdvReac Mild itching Verified 12/10/19 15:49 Home Medications Home Medications Medication Instructions Recorded Confirmed Type amitriptyline 25 mg PO DAILY 12/10/19 12/10/19 History amlodipine 2.5 mg PO DAILY 12/10/19 12/10/19 History bupropion HCl 300 mg PO DAILY 12/10/19 12/10/19 History duloxetine 60 mg PO DAILY 12/10/19 12/10/19 History gabapentin 100 mg PO TID 12/10/19 12/10/19 History propranolol 80 mg PO DAILY 12/10/19 12/10/19 History tramadol 50 mg PO Q6H 12/10/19 12/10/19 History Patient History Medical History Angina pectoris (~2015) Follow's Dr. Turner Surgical History History of section History of hysterectomy Family History Other Family history of diabetes mellitus ICD (implantable cardioverter-defibrillator) in place Social History Preferred Language: Fijian Communication Ability: Effective Beliefs That Will Affect Care: None marital status: Current Living Situation: Spouse Other Information That Helps Us Care for You: No Feels Safe at Home: Yes Safety Concerns: Feels Safe At This Time Smoking Status: Never smoker Hx Alcohol Use: No Hx Substance Use: No Review of Systems Review of Systems: All systems reviewed & are unremarkable except as noted in HPI & below Physical Exam Constitutional: WD/WN, vitals as above Eyes: PERRL, conjunctivae normal, anicteric sclerae ENMT: external ear and nose normal, oropharynx normal Neck: normal visual inspection Respiratory: normal respiratory effort, lungs clear to auscultation Cardiovascular: RRR, no murmur, no edema Gastrointestinal (Abdomen): normal bowel sounds, soft, nontender, no hepatosplenomegaly Musculoskeletal: no cyanosis or clubbing, extremities motor strength 5/5 Skin: no rashes, warm and dry + wound (drain in place, no surrounding erythema, + tender) Psychiatric: A+Ox3, euthymic affect Results & Data ([facility]) Vital Signs (Past 12 Hours) Vital Signs Temp Pulse Resp BP Pulse Ox 12/12/19 07:12 36.9 C 65 16 107/66 98 12/12/19 02:54 37.0 C 60 16 123/75 99 12/11/19 23:17 36.5 C 60 14 118/75 94 Laboratory Results Microbiology 12/11/19 14:20 Hip,Right Gram Stain - Final 12/11/19 14:30 Hip,Right Gram Stain - Final 12/11/19 14:30 Hip,Right Gram Stain - Final 12/11/19 14:30 Hip,Right Gram Stain - Final 12/11/19 14:20 Hip,Right Gram Stain - Final 12/11/19 14:40 Hip,Right Gram Stain - Final 12/11/19 14:30 Hip,Right Gram Stain - Final 12/10/19 Unknown Urine,Clean Catch Urine Culture - Preliminary No growth - Less than 1,000 colonies/mL, Final report to follow. PG Care Time/CCT Total # of Minutes Spent Total Time Spent with Patient: Total time spent is greater than 50% in coordination of care (as documented) at patient's floor/unit and/or counseling patient: Coding Level of Care Code 64838 Inpt Consult Level 4 Diagnoses Prosthetic joint infection T84.50XA
--- NOTE | 2019-12-12 10:19 | Anesthesiology Progress Note ---
Date of Service December 12, 2019 Anesthesia Post Procedure Vital Signs Vital Signs: Temp Pulse Pulse Resp BP Pulse Ox 12/12/19 07:12 36.9 C 65 16 107/66 98 12/12/19 02:54 37.0 C 60 16 123/75 99 12/11/19 23:17 36.5 C 60 14 118/75 94 12/11/19 21:41 73 130/77 12/11/19 20:38 36.8 C 79 18 107/68 97 12/11/19 19:35 36.8 C 79 18 106/68 95 12/11/19 18:36 36.6 C 63 17 107/68 97 12/11/19 18:05 36.5 C 60 18 115/73 95 12/11/19 17:05 67 12 123/72 96 12/11/19 16:55 67 18 108/69 100 12/11/19 16:45 67 12 122/59 L 100 12/11/19 16:35 36.3 C L 71 15 105/64 99 12/11/19 16:25 70 12 123/70 99 12/11/19 16:15 71 18 142/75 H 100 12/11/19 16:05 65 19 103/63 99 12/11/19 15:55 36.6 C 66 22 106/67 100 12/11/19 11:49 37.1 C 64 20 129/74 97 Pain Intensity Right Hip: Pain Intensity: 5 Notes Mental Status: alert / awake / arousable and participated in evaluation Patient Amnestic to Procedure: Yes Nausea / Vomiting: adequately controlled Pain: adequately controlled Airway Patency, RR, SpO2: stable & adequate BP & HR: stable & adequate Hydration State: stable & adequate Anesthetic Complications: no major complications apparent and Pt Satisfied with anesthetic care
--- NOTE | 2019-12-12 11:07 | Hospitalist Progress Note ---
Date of Service December 12, 2019 Assessment & Plan (1) Surgical site infection: I&D 12/11 with orthopedics of the right hip Pain control, dvt proph per surgery Minimal decrease in hgb Follow cultures (2) Anxiety: Continue duloxetine and bupropion (3) Fibromyalgia: Continue duloxetine, amtriptyline, (4) Hypertension: Continue amlodipine and propranolol (5) Diarrhea: No bms since admission Thank you for involving us in the care of this patient. Medicine will sign off at this time. Please let us know if you have any questions or concerns. Admission and Anticipated Discharge Date Admission Date: December 10, 2019 Subjective Ms. Oh is feeling well. No complaints. ROS Constitutional: no chills, aches, sweats or fever Respiratory: no sob,cough, sputum, or wheezing Cardiac: no chest pain, palpitations, edema, orthopnea or lightheadedness GI: no abdominal pain, nausea, vomiting, diarrhea or constipation : no dysuria or hesitancy Extremities: no joint pain or weakness Skin: no rash All other systems reviewed and negative Physical Exam Physical Exam: General: no distress Eyes: normal inspection, PERLL Respiratory: chest non tender, clear to auscultation, normal breath sounds, no respiratory distress, no accessory muscle use Cardiac: regular rate and rhythm, no rub or gallop, no murmur, no edema, no jvd GI/: active bowel sounds, no abd pain or tenderness, soft, non distended Extremities: normal range of motion, normal strength, non tender Neuro/Psych: alert and oriented x 3, normal mood and affect Skin: normal color, dry Results & Data ([facility]) Vital Signs (Past 12 Hours) Vital Signs Temp Pulse Resp BP Pulse Ox 12/12/19 07:12 36.9 C 65 16 107/66 98 12/12/19 02:54 37.0 C 60 16 123/75 99 12/11/19 23:17 36.5 C 60 14 118/75 94 PG Care Time/CCT Total # of Minutes Spent Total Time Spent with Patient: Total time spent is greater than 50% in coor dination of care (as documented) at patient's floor/unit and/or counseling patient: Coding Level of Care Code 16248 Subseq Hosp Care Lvl 2 Diagnoses Surgical site infection T81.49XA Anxiety F41.9 Fibromyalgia M79.7 Hypertension I10 Diarrhea R19.7
--- NOTE | 2019-12-12 13:40 | Orthopedic Progress Note ---
Date of Service December 12, 2019 Assessment & Plan (1) Surgical site infection: s/p I+D, revision right hip with head and liner exchange, excision of scar POD#1 -ancef/vanco -DVT ppx: SCDs, TEDs, ASA 81mg BID -WBAT RLE -PT/OT -monitor drain output - 75/180cc -PO XR demonstrates well aligned well fixed total hip prothesis without fracture/dislocation -am labs - as above, hgb 11.7 -f/u IO cultures - positive for gram negative bacilli -ID recs appreciated, will require 6 weeks IV abx pending cultures and sensitivities -DC planning Admission and Anticipated Discharge Date Admission Date: December 10, 2019 Subjective Post Operative Progress Note Patient seen sitting in chair at bedside, comfortable, denies complaints, pain well controlled, no acute issues. Denies F/C/N/V/SOB/CP. Review of Systems Review of Systems: All systems reviewed & are unremarkable except as noted in HPI & below Constitutional: as per Subjective / HPI Physical Exam Physical Exam: RLE NVSI +EHL/FHL/TA/GS SILT grossly, +2 DP pulse, compartments soft NT, dressing cdi. HMV drain intact Constitutional: WD/WN, vitals as above Results & Data ([facility] [place]) Vital Signs (Past 12 Hours) Vital Signs Temp Pulse Resp BP Pulse Ox 12/12/19 12:31 36.7 C 73 18 117/65 99 12/12/19 07:12 36.9 C 65 16 107/66 98 12/12/19 02:54 37.0 C 60 16 123/75 99 Laboratory Results 12/12/19 12/12/19 Range/Units 07:23 07:23 WBC 7.41 (4.8-10.8) K/uL RBC 4.04 L (4.2-5.4) M/uL Hgb 11.7 L (12.0-16.0) g/dL Hct 35.5 L (37-47) % MCV 87.9 (80-100) fL MCH 29.0 (25-34) pg MCHC 33.0 (32-36) g/dL RDW Std Deviation 42.8 (36.4-46.3) fL RDW Coeff of Sharon 13.3 (11.5-14.5) % Plt Count 156 (130-400) K/uL MPV 9.2 (7.4-10.4) fL Immature Gran % (Auto) 0.1 % Neut % (Auto) 61.5 % Lymph % (Auto) 19.2 % [place] % (Auto) 11.6 % Eos % (Auto) 7.3 % Baso % (Auto) 0.3 % Immature Gran # (Auto) 0.01 (0.00-0.02) K/uL Neut # (Auto) 4.56 (1.4-6.5) K/uL Lymph # (Auto) 1.42 (1.2-3.4) K/uL [place] # (Auto) 0.86 H (0.11-0.59) K/uL Eos # (Auto) 0.54 H (0-0.5) K/uL Baso # (Auto) 0.02 (0-0.2) K/uL Sodium 139 (136-145) mmol/L Potassium 4.1 (3.5-5.1) mmol/L Chloride 109 H (98-107) mmol/L Carbon Dioxide 28 (21-32) mmol/L Anion Gap 2.0 L (3-11) BUN 14 (7-18) mg/dl Creatinine 0.86 (0.6-1.2) mg/dl Est Cr Clr Drug Dosing 99.6 ml/min Est GFR ( Amer) 90.0 Est GFR (Non-Af Amer) 77.7 BUN/Creatinine Ratio 16.2 (10-20) Glucose 109 H (70-99) mg/dl Calcium 9.0 (8.5-10.1) mg/dl
[2019-12-12] MEDS ORDERED: VANCOMYCIN TROUGH ONE (14:30)
[2019-12-12] MEDS ORDERED: PIPERACILL/TAZOBAC CONSULT ACTIVE PRN (14:57)
[2019-12-12] MEDS ORDERED: PIPERACILLIN/TAZOBACTAM 4.5 GM in DEXTROSE 5% 100 ML IV STA (15:27)
--- NOTE | 2019-12-12 15:36 | Pharmacy Report ---
Pharmacy Abx Dose Short Note - Date of Service December 12, 2019 - Assessment & Plan A/P Vanco trough prior to Css 20.6mcg/mL. Pt's habitus puts her at risk for further vanco accumulation. Given that this level is elevated after only two maintenance doses we will reduce dose to 1250mg (11mg/kg) and increase the dosing interval to q10 hours. trough ordered for 12/14 @0730. UO/eCrCl all WNL. Pharmacy will continue to follow and will adjust dose/frequency as necessary. Thank you.
[2019-12-12] MEDS: AMITRIPTYLINE HCL 25 MG TAB PO SCH (20:10)
[2019-12-12] MEDS: PIPERACILLIN/TAZOBACTAM 4.5 GM in DEXTROSE 5% 100 ML IV SCH (20:10)
[2019-12-12] MEDS: SENNA 8.6 MG TAB PO SCH (20:10)
[2019-12-12] MEDS: PROPRANOLOL HCL 80 MG TAB PO SCH (20:10)
[2019-12-12] MEDS: AMLODIPINE BESYLATE 5 MG TAB PO SCH (20:10)
[2019-12-12] MEDS ORDERED: CeleBREX 200 MG CAP PO SCH (21:00)
[2019-12-13] MEDS: VANCOMYCIN HCL 1,250 MG in SODIUM CHLORIDE 0.9% 250 ML IV SCH ×3 (01:55→22:12)
[2019-12-13] MEDS: PIPERACILLIN/TAZOBACTAM 4.5 GM in DEXTROSE 5% 100 ML IV SCH ×3 (04:14→20:06)
[2019-12-13] MEDS: KETOROLAC TROMETHAMINE 15 MG/ML VIAL IV SCH ×2 (06:43→11:53)
[2019-12-13] MEDS: ACETAMINOPHEN 500 MG TAB PO SCH ×3 (06:43→22:15)
[2019-12-13 06:59] LABS: Basophils # (auto) 0.01 K/uL (0-0.2); Basophils % (auto) 0.1 %; Eosinophils % (auto) 9.3 %; Hematocrit (blood only) 32.5 % (37-47); Hemoglobin 10.7 g/dL (12.0-16.0); Lymphocytes # (auto) 1.71 K/uL (1.2-3.4); Lymphocytes % (auto) 22.8 %; Mean Corpuscular Hemoglobin 28.6 pg (25-34); Mean Corpuscular Hgb Conc 32.9 g/dL (32-36); Mean Corpuscular Volume 86.9 fL (80-100); Mean Platelet Volume 9.5 fL (7.4-10.4); Monocytes # (auto) 0.75 K/uL (0.11-0.59); Neutrophils # (auto) 4.32 K/uL (1.4-6.5); Neutrophils % (auto) 57.8 %; Platelet Count 138 K/uL (130-400); RDW Coefficient of Variation 13.3 % (11.5-14.5); RDW Standard Deviation 42.2 fL (36.4-46.3); Red Blood Count 3.74 M/uL (4.2-5.4); White Blood Count 7.49 K/uL (4.8-10.8)
[2019-12-13 07:28] LABS: BUN Creatinine Ratio 16.1 (10-20); Calcium 8.9 mg/dl (8.5-10.1); Creatinine Clr Calc Pharmacy 112.7 ml/min; Est GFR (African American) 104.5; Est GFR (Non-African American) 90.2; Potassium 3.8 mmol/L (3.5-5.1)
[2019-12-13] MEDS: DULOXETINE HCL 60 MG CAP PO SCH (08:42)
[2019-12-13] MEDS: BuPROPion XL 300 MG TABCR PO SCH (08:42)
[2019-12-13] MEDS: DOCUSATE SODIUM 100 MG CAP PO SCH ×2 (08:42→20:07)
[2019-12-13] MEDS: PANTOprazole 40 MG TAB PO SCH (08:42)
[2019-12-13] MEDS: MULTIVITAMIN TAB PO SCH (08:42)
[2019-12-13] MEDS: ASPIRIN 81 MG ECTAB PO SCH ×2 (08:42→20:08)
[2019-12-13] MEDS: GABAPENTIN 100 MG CAP PO SCH ×3 (08:43→20:08)
--- NOTE | 2019-12-13 13:45 | Orthopedic Progress Note ---
Date of Service December 13, 2019 Assessment & Plan (1) Surgical site infection: s/p I+D, revision right hip with head and liner exchange, excision of scar POD#2 -vanco/zosyn -DVT ppx: SCDs, TEDs, ASA 81mg BID -WBAT RLE -PT/OT -Hmv drain DC'd -PO XR demonstrates well aligned well fixed total hip prothesis without fracture/dislocation -am labs - as above, hgb 10.7 -f/u IO cultures - positive for gram negative bacilli, coag neg staph -ID recs appreciated, will require 6 weeks IV abx pending cultures and sensitivities -DC planning POD#1 -ancef/vanco -DVT ppx: SCDs, TEDs, ASA 81mg BID -WBAT RLE -PT/OT -monitor drain output - 75/180cc -PO XR demonstrates well aligned well fixed total hip prothesis without fracture/dislocation -am labs - as above, hgb 11.7 -f/u IO cultures - positive for gram negative bacilli -ID recs appreciated, will require 6 weeks IV abx pending cultures and sensitivities -DC planning Admission and Anticipated Discharge Date Admission Date: December 10, 2019 Subjective Post Operative Progress Note Patient seen ambulating in room, comfortable, denies complaints, pain well controlled, no acute issues. Denies F/C/N/V/SOB/CP. Review of Systems Review of Systems: All systems reviewed & are unremarkable except as noted in HPI & below Constitutional: as per Subjective / HPI Physical Exam Physical Exam: RLE NVSI +EHL/FHL/TA/GS SILT grossly, +2 DP pulse, compartments soft NT, dressing cdi. Constitutional: WD/WN, vitals as above Results & Data ([facility]) Vital Signs (Past 12 Hours) Vital Signs Temp Pulse Resp BP Pulse Ox 12/13/19 12:09 36.8 C 71 19 120/80 96 12/13/19 07:50 36.9 C 71 19 116/86 96 Laboratory Results 12/13/19 12/13/19 12/12/19 Range/Units 06:38 06:38 14:27 WBC 7.49 (4.8-10.8) K/uL RBC 3.74 L (4.2-5.4) M/uL Hgb 10.7 L (12.0-16.0) g/dL Hct 32.5 L (37-47) % MCV 86.9 (80-100) fL MCH 28.6 (25-34) pg MCHC 32.9 (32-36) g/dL RDW Std Deviation 42.2 (36.4-46.3) fL RDW Coeff of [place] 13.3 (11.5-14.5) % Plt Count 138 (130-400) K/uL MPV 9.5 (7.4-10.4) fL Immature Gran % (Auto) 0.0 % Neut % (Auto) 57.8 % Lymph % (Auto) 22.8 % [place] % (Auto) 10.0 % Eos % (Auto) 9.3 % Baso % (Auto) 0.1 % Immature Gran # (Auto) 0.00 (0.00-0.02) K/uL Neut # (Auto) 4.32 (1.4-6.5) K/uL Lymph # (Auto) 1.71 (1.2-3.4) K/uL [place] # (Auto) 0.75 H (0.11-0.59) K/uL Eos # (Auto) 0.70 H (0-0.5) K/uL Baso # (Auto) 0.01 (0-0.2) K/uL Sodium 141 (136-145) mmol/L Potassium 3.8 (3.5-5.1) mmol/L Chloride 110 H (98-107) mmol/L Carbon Dioxide 25 (21-32) mmol/L Anion Gap 5.0 (3-11) BUN 12 (7-18) mg/dl Creatinine 0.76 (0.6-1.2) mg/dl Est Cr Clr Drug Dosing 112.7 ml/min Est GFR ( Amer) 104.5 Est GFR (Non-Af Amer) 90.2 BUN/Creatinine Ratio 16.1 (10-20) Glucose 109 H (70-99) mg/dl Calcium 8.9 (8.5-10.1) mg/dl Vancomycin Trough 20.6 (See Comment) mcg/ml
[2019-12-13] MEDS: CeleBREX 200 MG CAP PO SCH (20:07)
[2019-12-13] MEDS: AMLODIPINE BESYLATE 5 MG TAB PO SCH (20:08)
[2019-12-13] MEDS: SENNA 8.6 MG TAB PO SCH (20:09)
[2019-12-13] MEDS: PROPRANOLOL HCL 80 MG TAB PO SCH (20:09)
[2019-12-13] MEDS: AMITRIPTYLINE HCL 25 MG TAB PO SCH (20:09)
[2019-12-14] MEDS: PIPERACILLIN/TAZOBACTAM 4.5 GM in DEXTROSE 5% 100 ML IV SCH ×3 (05:29→19:50)
[2019-12-14] MEDS: ACETAMINOPHEN 500 MG TAB PO SCH ×3 (05:30→21:02)
--- NOTE | 2019-12-14 07:16 | Orthopedic Progress Note ---
Date of Service December 14, 2019 Assessment & Plan (1) Surgical site infection: POD #3 s/p I+D, revision right hip with head and liner exchange, excision of scar -vanco/zosyn -DVT ppx: SCDs, TEDs, ASA 81mg BID -WBAT RLE -PT/OT -f/u IO cultures - positive for gram negative bacilli, coag neg staph -ID recs appreciated, will require 6 weeks IV abx pending cultures and sensitivities -DC planning Admission and Anticipated Discharge Date Admission Date: December 10, 2019 Subjective POD #3 s/p I&D right hip Review of Systems Constitutional: no fever and no chills Respiratory: no cough and no dyspnea Cardiovascular: no chest pain Gastrointestinal: no abdominal pain, no nausea and no vomiting Physical Exam Physical Exam: Vital Signs Temp 36.8 C 12/13/19 22:57 Pulse 68 12/13/19 22:57 Resp 16 12/13/19 22:57 BP 112/71 12/13/19 22:57 Pulse Ox 97 12/13/19 22:57 Intake & Output 12/13/19 12/14/19 12/14/19 18:59 06:59 18:59 Intake Total 995.00 / 2115.00 1120 / 2115.00 Output Total Balance 994.00 / 2114.00 1120 / 2114.00 Intake: IV 515.00 / 910.00 395 / 910.00 Zosyn 4.5 gm I n D5 100 ml @ 28. 240.00 / 360.00 120 / 360.00 75 mls/hr IV Q 8H IKE Rx#: [id number] Vancomycin HCl 1,250 mg In Nss 275 / 550 275 / 550 250 ml @ 125 m ls/hr IV Q10H IKE Rx#:[id number] Oral 480 / 1205 725 / 1205 Output: Urine Other: # Unmeasured Voi ds 1 3 # Bowel Movement Diapers 1 Constitutional: WD/WN, vitals as above no acute distress Musculoskeletal: Right Hip: prevena intact and functioning. calf SNT, she is able to wiggle her toes/ankle without difficulty. DP palpable. Results & Data ([facility]) Vital Signs (Past 12 Hours) Vital Signs Temp Pulse Resp BP Pulse Ox 12/13/19 22:57 36.8 C 68 16 112/71 97 Laboratory Results Laboratory Results WBC 7.49 K/uL (4.8-10.8) 12/13/19 06:38 RBC 3.74 M/uL (4.2-5.4) L 12/13/19 06:38 Hgb 10.7 g/dL (12.0-16.0) L 12/13/19 06:38 Hct 32.5 % (37-47) L 12/13/19 06:38 MCV 86.9 fL (80-100) 12/13/19 06:38 MCH 28.6 pg (25-34) 12/13/19 06:38 MCHC 32.9 g/dL (32-36) 12/13/19 06:38 RDW Std Deviation 42.2 fL (36.4-46.3) 12/13/19 06:38 RDW Coeff of Sharon 13.3 % (11.5-14.5) 12/13/19 06:38 Plt Count 138 K/uL (130-400) 12/13/19 06:38 MPV 9.5 fL (7.4-10.4) 12/13/19 06:38 Immature Gran % (Auto) 0.0 % 12/13/19 06:38 Neut % (Auto) 57.8 % 12/13/19 06:38 Lymph % (Auto) 22.8 % 12/13/19 06:38 [place] % (Auto) 10.0 % 12/13/19 06:38 Eos % (Auto) 9.3 % 12/13/19 06:38 Baso % (Auto) 0.1 % 12/13/19 06:38 Immature Gran # (Auto) 0.00 K/uL (0.00-0.02) 12/13/19 06:38 Neut # (Auto) 4.32 K/uL (1.4-6.5) 12/13/19 06:38 Lymph # (Auto) 1.71 K/uL (1.2-3.4) 12/13/19 06:38 [place] # (Auto) 0.75 K/uL (0.11-0.59) H 12/13/19 06:38 Eos # (Auto) 0.70 K/uL (0-0.5) H 12/13/19 06:38 Baso # (Auto) 0.01 K/uL (0-0.2) 12/13/19 06:38 PT 10.7 Seconds (9.0-12.0) 12/11/19 06:31 INR 1.0 (0.9-1.1) 12/11/19 06:31 Sodium 141 mmol/L (136-145) 12/13/19 06:38 Potassium 3.8 mmol/L (3.5-5.1) 12/13/19 06:38 Chloride 110 mmol/L (98-107) H 12/13/19 06:38 Carbon Dioxide 25 mmol/L (21-32) 12/13/19 06:38 Anion Gap 5.0 (3-11) 12/13/19 06:38 BUN 12 mg/dl (7-18) 12/13/19 06:38 Creatinine 0.76 mg/dl (0.6-1.2) 12/13/19 06:38 Est Cr Clr Drug Dosing 112.7 ml/min 12/13/19 06:38 Est GFR ( Amer) 104.5 12/13/19 06:38 Est GFR (Non-Af Amer) 90.2 12/13/19 06:38 BUN/Creatinine Ratio 16.1 (10-20) 12/13/19 06:38 Glucose 109 mg/dl (70-99) H 12/13/19 06:38 Calcium 8.9 mg/dl (8.5-10.1) 12/13/19 06:38 Urine Color Dark Yellow 12/10/19 Unknown Urine Appearance Cloudy (Clear) A 12/10/19 Unknown Urine pH 5.0 (4.5-7.5) 12/10/19 Unknown Ur Specific [place] 1.034 (1.000-1.030) H 12/10/19 Unknown Urine Protein Negative (Negative) 12/10/19 Unknown Urine Glucose (UA) Negative (Negative) 12/10/19 Unknown Urine Ketones Negative (Negative) 12/10/19 Unknown Urine Blood Negative (Negative) 12/10/19 Unknown Urine Nitrite Negative (Negative) 12/10/19 Unknown Urine Bilirubin Negative (Negative) 12/10/19 Unknown Urine Urobilinogen Negative (Negative) 12/10/19 Unknown Ur Leukocyte Esterase Negative (Negative) 12/10/19 Unknown Urine WBC (Auto) 1-5 /hpf (0-5) 12/10/19 Unknown Urine RBC (Auto) 0-4 /hpf (0-4) 12/10/19 Unknown U Hyaline Cast (Auto) 5-10 /lpf (0-5) H 12/10/19 Unknown U Epithel Cells (Auto) >30 /lpf (0-5) H 12/10/19 Unknown Urine Bacteria (Auto) 1+ (Negative) H 12/10/19 Unknown Urine Crystals Not Reportable 12/10/19 Unknown Calcium Oxalate Crystal Present (None Prsent) A 12/10/19 Unknown Urine Mucus Present (None Prsent) A 12/10/19 Unknown Vancomycin Trough 20.6 mcg/ml (See Comment) 12/12/19 14:27 Blood Type O Positive 12/10/19 14:37 Antibody Screen NEGATIVE 12/10/19 14:37 Microbiology 12/11/19 14:30 Hip,Right Gram Stain - Final 12/11/19 14:30 Hip,Right Aerobic and Anaerobic Culture - Preliminary Coag negative Staphylococcus 12/11/19 14:20 Hip,Right Gram Stain - Final 12/11/19 14:20 Hip,Right Aerobic and Anaerobic Culture - Preliminary Gram negative bacilli 12/11/19 14:20 Hip,Right Gram Stain - Final 12/11/19 14:20 Hip,Right Aerobic and Anaerobic Culture - Preliminary Gram negative bacilli 12/11/19 14:40 Hip,Right Gram Stain - Final 12/11/19 14:40 Hip,Right Aerobic and Anaerobic Culture - Preliminary No growth to date. 12/11/19 14:30 Hip,Right Gram Stain - Final 12/11/19 14:30 Hip,Right Aerobic and Anaerobic Culture - Preliminary No growth to date. 12/11/19 14:30 Hip,Right Gram Stain - Final 12/11/19 14:30 Hip,Right Aerobic and Anaerobic Culture - Preliminary No growth to date. 12/11/19 14:30 Hip,Right Gram Stain - Final 12/11/19 14:30 Hip,Right Aerobic and Anaerobic Culture - Preliminary No growth to date. 12/10/19 Unknown Urine,Clean Catch Urine Culture - Final No growth - less than 1,000 colonies/mL.
[2019-12-14 07:27] LABS: Basophils # (auto) 0.01 K/uL (0-0.2); Basophils % (auto) 0.1 %; Eosinophils # (auto) 0.61 K/uL (0-0.5); Eosinophils % (auto) 9.1 %; Hematocrit (blood only) 34.6 % (37-47); Hemoglobin 11.5 g/dL (12.0-16.0); Immature Granulocytes # (auto) 0.01 K/uL (0.00-0.02); Immature Granulocytes % (auto) 0.1 %; Lymphocytes # (auto) 1.71 K/uL (1.2-3.4); Lymphocytes % (auto) 25.4 %; Mean Corpuscular Hemoglobin 29.3 pg (25-34); Mean Corpuscular Hgb Conc 33.2 g/dL (32-36); Mean Platelet Volume 9.2 fL (7.4-10.4); Monocytes # (auto) 0.68 K/uL (0.11-0.59); Monocytes % (auto) 10.1 %; Neutrophils # (auto) 3.72 K/uL (1.4-6.5); Neutrophils % (auto) 55.2 %; Platelet Count 162 K/uL (130-400); RDW Coefficient of Variation 13.3 % (11.5-14.5); RDW Standard Deviation 42.7 fL (36.4-46.3); Red Blood Count 3.93 M/uL (4.2-5.4); White Blood Count 6.74 K/uL (4.8-10.8)
[2019-12-14] MEDS ORDERED: VANCOMYCIN TROUGH ONE (07:30)
[2019-12-14] MEDS: VANCOMYCIN HCL 1,250 MG in SODIUM CHLORIDE 0.9% 250 ML IV SCH ×3 (07:44→23:40)
[2019-12-14 08:02] LABS: BUN Creatinine Ratio 13.7 (10-20); Creatinine Clr Calc Pharmacy 114.2 ml/min; Est GFR (African American) 106.2; Est GFR (Non-African American) 91.6; Potassium 3.7 mmol/L (3.5-5.1)
[2019-12-14] MEDS: CeleBREX 200 MG CAP PO SCH ×2 (08:25→20:08)
[2019-12-14] MEDS: MULTIVITAMIN TAB PO SCH (08:25)
[2019-12-14] MEDS: DOCUSATE SODIUM 100 MG CAP PO SCH ×2 (08:25→20:08)
[2019-12-14] MEDS: GABAPENTIN 100 MG CAP PO SCH ×3 (08:25→20:08)
[2019-12-14] MEDS: ASPIRIN 81 MG ECTAB PO SCH ×2 (08:25→20:08)
[2019-12-14] MEDS: DULOXETINE HCL 60 MG CAP PO SCH (08:26)
[2019-12-14] MEDS: BuPROPion XL 300 MG TABCR PO SCH (08:26)
[2019-12-14] MEDS: PANTOprazole 40 MG TAB PO SCH (08:26)
--- NOTE | 2019-12-14 08:52 | Pharmacy Report ---
Pharmacy Abx Dose Short Note - Date of Service December 14, 2019 - Assessment & Plan Assessment 54 year old F receiving IV Vancomycin and Zosyn for treatment of surgical site infection * S/p R NAYELY on 11/14/2019, developed drainage from area, s/p I&D and exchange on 12/11 * Cultures from 12/11 growing Serratia marcescens and Coag-Negative Staph * S. marcescens sensitive to fluoroquinolones, zosyn, cefepime * Day #4 of antimicrobial therapy, ID consulted and recommends 6 weeks total of IV antibiotics * Patient is afebrile, normal WBCs, renal function at baseline Plan Vancomycin * Trough level of 14.5 mcg/mL is slightly subtherapeutic * Change to 1250 mg IV every 8 hours which estimates a trough between 15 - 20 mcg/mL * Goal trough: 15 to 20 mcg/mL * Trough level ordered for: 12/16/2019 @ 0730 to reflect steady state levels Zosyn * Continue 4.5 g IV every 8 hours for elevated BMI Pharmacy will continue to follow and will adjust dose/frequency as necessary. Thank you.
[2019-12-14] MEDS: PROPRANOLOL HCL 80 MG TAB PO SCH (20:08)
[2019-12-14] MEDS: AMLODIPINE BESYLATE 5 MG TAB PO SCH (20:08)
[2019-12-14] MEDS: SENNA 8.6 MG TAB PO SCH (20:09)
[2019-12-14] MEDS: AMITRIPTYLINE HCL 25 MG TAB PO SCH (20:09)
[2019-12-15] MEDS: PIPERACILLIN/TAZOBACTAM 4.5 GM in DEXTROSE 5% 100 ML IV SCH ×3 (04:58→19:51)
[2019-12-15] MEDS: ACETAMINOPHEN 500 MG TAB PO SCH ×3 (05:00→21:07)
[2019-12-15 06:22] LABS: Basophils # (auto) 0.01 K/uL (0-0.2); Basophils % (auto) 0.2 %; Eosinophils # (auto) 0.77 K/uL (0-0.5); Hematocrit (blood only) 32.3 % (37-47); Hemoglobin 10.7 g/dL (12.0-16.0); Immature Granulocytes # (auto) 0.01 K/uL (0.00-0.02); Immature Granulocytes % (auto) 0.2 %; Lymphocytes # (auto) 2.02 K/uL (1.2-3.4); Lymphocytes % (auto) 31.4 %; Mean Corpuscular Hemoglobin 29.2 pg (25-34); Mean Corpuscular Hgb Conc 33.1 g/dL (32-36); Mean Corpuscular Volume 88.3 fL (80-100); Mean Platelet Volume 9.5 fL (7.4-10.4); Monocytes # (auto) 0.77 K/uL (0.11-0.59); Neutrophils # (auto) 2.85 K/uL (1.4-6.5); Neutrophils % (auto) 44.2 %; Platelet Count 162 K/uL (130-400); RDW Coefficient of Variation 13.5 % (11.5-14.5); RDW Standard Deviation 43.3 fL (36.4-46.3); Red Blood Count 3.66 M/uL (4.2-5.4); White Blood Count 6.43 K/uL (4.8-10.8)
--- NOTE | 2019-12-15 06:47 | Orthopedic Progress Note ---
Date of Service December 15, 2019 Assessment & Plan (1) Surgical site infection: POD #4 s/p I+D, revision right hip with head and liner exchange, excision of scar -vanco/zosyn -DVT ppx: SCDs, TEDs, ASA 81mg BID -WBAT RLE -PT/OT -f/u IO cultures - positive for gram negative bacilli, coag neg staph, Serratia marcescens -ID recs appreciated, will require 6 weeks IV abx pending cultures and sensitivities -DC planning -will order PICC line Admission and Anticipated Discharge Date Admission Date: December 10, 2019 Subjective POD #4 s/p I&D right hip Review of Systems Constitutional: no fever and no chills Respiratory: no cough and no dyspnea Cardiovascular: no chest pain, no dyspnea and no orthopnea Gastrointestinal: no abdominal pain, no nausea and no vomiting Physical Exam Physical Exam: Vital Signs Temp 36.8 C 12/14/19 23:39 Pulse 71 12/14/19 23:39 Resp 16 12/14/19 23:39 BP 120/70 12/14/19 23:39 Pulse Ox 96 12/14/19 23:39 Intake & Output 12/14/19 12/14/19 12/15/19 06:59 18:59 06:59 Intake Total 1120 / 2115.00 1540 / 2532.52 992.52 / 2532.52 Balance 1120 / 2114.00 1540 / 2532.52 992.52 / 2532.52 Intake: IV 395 / 910.00 790 / 1232.52 442.52 / 1232.52 Zosyn 4.5 gm I n D5 100 ml @ 28. 120 / 360.00 240 / 407.52 167.52 / 407.52 75 mls/hr IV Q 8H IKE Rx#: [id number] Vancomycin HCl 1,250 mg In Nss 275 / 550 550 / 825 275 / 825 250 ml @ 125 m ls/hr IV Q8H IKE Rx#:[id number] Oral 725 / 1205 750 / 1300 550 / 1300 Other: # Unmeasured Voi ds 3 1 # Bowel Movement Diapers 1 Constitutional: WD/WN, vitals as above no acute distress Musculoskeletal: right hip incision covered w/ prevena wound vac, no erythema noted. calf SNT, NVDI. DP palpable Results & Data ([facility]) Vital Signs (Past 12 Hours) Vital Signs Temp Pulse Resp BP Pulse Ox 12/14/19 23:39 36.8 C 71 16 120/70 96 12/14/19 20:07 71 111/70 Laboratory Results Laboratory Results WBC 6.43 K/uL (4.8-10.8) 12/15/19 04:43 RBC 3.66 M/uL (4.2-5.4) L 12/15/19 04:43 Hgb 10.7 g/dL (12.0-16.0) L 12/15/19 04:43 Hct 32.3 % (37-47) L 12/15/19 04:43 MCV 88.3 fL (80-100) 12/15/19 04:43 MCH 29.2 pg (25-34) 12/15/19 04:43 MCHC 33.1 g/dL (32-36) 12/15/19 04:43 RDW Std Deviation 43.3 fL (36.4-46.3) 12/15/19 04:43 RDW Coeff of Sharon 13.5 % (11.5-14.5) 12/15/19 04:43 Plt Count 162 K/uL (130-400) 12/15/19 04:43 MPV 9.5 fL (7.4-10.4) 12/15/19 04:43 Immature Gran % (Auto) 0.2 % 12/15/19 04:43 Neut % (Auto) 44.2 % 12/15/19 04:43 Lymph % (Auto) 31.4 % 12/15/19 04:43 [place] % (Auto) 12.0 % 12/15/19 04:43 Eos % (Auto) 12.0 % 12/15/19 04:43 Baso % (Auto) 0.2 % 12/15/19 04:43 Immature Gran # (Auto) 0.01 K/uL (0.00-0.02) 12/15/19 04:43 Neut # (Auto) 2.85 K/uL (1.4-6.5) 12/15/19 04:43 Lymph # (Auto) 2.02 K/uL (1.2-3.4) 12/15/19 04:43 [place] # (Auto) 0.77 K/uL (0.11-0.59) H 12/15/19 04:43 Eos # (Auto) 0.77 K/uL (0-0.5) H 12/15/19 04:43 Baso # (Auto) 0.01 K/uL (0-0.2) 12/15/19 04:43 PT 10.7 Seconds (9.0-12.0) 12/11/19 06:31 INR 1.0 (0.9-1.1) 12/11/19 06:31 Sodium 140 mmol/L (136-145) 12/14/19 07:12 Potassium 3.7 mmol/L (3.5-5.1) 12/14/19 07:12 Chloride 108 mmol/L (98-107) H 12/14/19 07:12 Carbon Dioxide 29 mmol/L (21-32) 12/14/19 07:12 Anion Gap 3.0 (3-11) 12/14/19 07:12 BUN 10 mg/dl (7-18) 12/14/19 07:12 Creatinine 0.75 mg/dl (0.6-1.2) 12/14/19 07:12 Est Cr Clr Drug Dosing 114.2 ml/min 12/14/19 07:12 Est GFR ( Amer) 106.2 12/14/19 07:12 Est GFR (Non-Af Amer) 91.6 12/14/19 07:12 BUN/Creatinine Ratio 13.7 (10-20) 12/14/19 07:12 Glucose 104 mg/dl (70-99) H 12/14/19 07:12 Calcium 9.0 mg/dl (8.5-10.1) 12/14/19 07:12 Urine Color Dark Yellow 12/10/19 Unknown Urine Appearance Cloudy (Clear) A 12/10/19 Unknown Urine pH 5.0 (4.5-7.5) 12/10/19 Unknown Ur Specific [place] 1.034 (1.000-1.030) H 12/10/19 Unknown Urine Protein Negative (Negative) 12/10/19 Unknown Urine Glucose (UA) Negative (Negative) 12/10/19 Unknown Urine Ketones Negative (Negative) 12/10/19 Unknown Urine Blood Negative (Negative) 12/10/19 Unknown Urine Nitrite Negative (Negative) 12/10/19 Unknown Urine Bilirubin Negative (Negative) 12/10/19 Unknown Urine Urobilinogen Negative (Negative) 12/10/19 Unknown Ur Leukocyte Esterase Negative (Negative) 12/10/19 Unknown Urine WBC (Auto) 1-5 /hpf (0-5) 12/10/19 Unknown Urine RBC (Auto) 0-4 /hpf (0-4) 12/10/19 Unknown U Hyaline Cast (Auto) 5-10 /lpf (0-5) H 12/10/19 Unknown U Epithel Cells (Auto) >30 /lpf (0-5) H 12/10/19 Unknown Urine Bacteria (Auto) 1+ (Negative) H 12/10/19 Unknown Urine Crystals Not Reportable 12/10/19 Unknown Calcium Oxalate Crystal Present (None Prsent) A 12/10/19 Unknown Urine Mucus Present (None Prsent) A 12/10/19 Unknown Vancomycin Trough 14.5 mcg/ml (See Comment) 12/14/19 07:12 Blood Type O Positive 12/10/19 14:37 Antibody Screen NEGATIVE 12/10/19 14:37 Diagnostic Findings Microbiology 12/11/19 14:40 Hip,Right Gram Stain - Final 12/11/19 14:40 Hip,Right Aerobic and Anaerobic Culture - Preliminary Coag negative Staphylococcus 12/11/19 14:30 Hip,Right Gram Stain - Final 12/11/19 14:30 Hip,Right Aerobic and Anaerobic Culture - Preliminary Coag negative Staphylococcus 12/11/19 14:30 Hip,Right Gram Stain - Final 12/11/19 14:30 Hip,Right Aerobic and Anaerobic Culture - Preliminary Coag negative Staphylococcus 12/11/19 14:30 Hip,Right Gram Stain - Final 12/11/19 14:30 Hip,Right Aerobic and Anaerobic Culture - Preliminary Coag negative Staphylococcus 12/11/19 14:30 Hip,Right Gram Stain - Final 12/11/19 14:30 Hip,Right Aerobic and Anaerobic Culture - Preliminary Coag negative Staphylococcus 12/11/19 14:20 Hip,Right Gram Stain - Final 12/11/19 14:20 Hip,Right Aerobic and Anaerobic Culture - Preliminary Serratia marcescens 12/11/19 14:20 Hip,Right Gram Stain - Final 12/11/19 14:20 Hip,Right Aerobic and Anaerobic Culture - Preliminary Serratia marcescens 12/10/19 Unknown Urine,Clean Catch Urine Culture - Final No growth - less than 1,000 colonies/mL.
[2019-12-15 07:12] LABS: BUN Creatinine Ratio 16.4 (10-20); Creatinine Clr Calc Pharmacy 145.1 ml/min; Est GFR (African American) 122.1; Est GFR (Non-African American) 105.4; Potassium 3.9 mmol/L (3.5-5.1)
[2019-12-15] MEDS: VANCOMYCIN HCL 1,250 MG in SODIUM CHLORIDE 0.9% 250 ML IV SCH ×2 (07:43→17:16)
[2019-12-15] MEDS: DULOXETINE HCL 60 MG CAP PO SCH (08:56)
[2019-12-15] MEDS: ASPIRIN 81 MG ECTAB PO SCH ×2 (08:56→21:07)
[2019-12-15] MEDS: BuPROPion XL 300 MG TABCR PO SCH (08:56)
[2019-12-15] MEDS: CeleBREX 200 MG CAP PO SCH ×2 (08:56→21:07)
[2019-12-15] MEDS: DOCUSATE SODIUM 100 MG CAP PO SCH ×2 (08:56→21:07)
[2019-12-15] MEDS: MULTIVITAMIN TAB PO SCH (08:56)
[2019-12-15] MEDS: PANTOprazole 40 MG TAB PO SCH (08:57)
[2019-12-15] MEDS: GABAPENTIN 100 MG CAP PO SCH ×3 (08:57→21:07)
--- NOTE | 2019-12-15 12:33 | XRay Report ---
XR chest 1V portable CLINICAL HISTORY: CONFIRM PICC PLACEMENT (UNABLE TO OBTAIN BULLSEYE) COMPARISON STUDY: 12/10/2019 FINDINGS: PICC catheter placed a right-sided approach. Tip is in superior vena cava. No evidence for pneumothorax. IMPRESSION: Catheter placed in superior vena cava. No evidence for pneumothorax. ACT 112: Negative or not required by law. The above report was generated using voice recognition software. It may contain grammatical, syntax or spelling errors. Electronically signed by: Diego Melvin M.D. 12/15/2019 12:32 PM
[2019-12-15] MEDS ORDERED: VANCOMYCIN TROUGH SCH (15:30)
--- NOTE | 2019-12-15 17:29 | Pharmacy Report ---
Pharmacy Abx Dose Short Note - Date of Service December 15, 2019 - Assessment & Plan Assessment 54 year old F receiving Vancomycin and zosyn for treatment of surgical site infection Day # 5 of antimicrobial therapy. Duration of therapy expected to be 6 weeks Plan Vancomycin * Trough level of 16.1 mcg/mL is therapeutic * Continue dose of 1250 mg IV every 8 hours * Goal trough level : 15 to 20 mcg/mL * No further levels ordered at this time. May consider trough level in future due to pt's risk for accumulation due to BMI>35. Pharmacy will continue to follow and will adjust dose/frequency as necessary. Thank you.
[2019-12-15] MEDS: AMITRIPTYLINE HCL 25 MG TAB PO SCH (21:07)
[2019-12-15] MEDS: AMLODIPINE BESYLATE 5 MG TAB PO SCH (21:07)
[2019-12-15] MEDS: PROPRANOLOL HCL 80 MG TAB PO SCH (21:07)
[2019-12-15] MEDS: SENNA 8.6 MG TAB PO SCH (21:07)
[2019-12-16] MEDS: VANCOMYCIN HCL 1,250 MG in SODIUM CHLORIDE 0.9% 250 ML IV SCH ×3 (00:50→15:37)
[2019-12-16] MEDS: PIPERACILLIN/TAZOBACTAM 4.5 GM in DEXTROSE 5% 100 ML IV SCH (03:22)
[2019-12-16] MEDS: ACETAMINOPHEN 500 MG TAB PO SCH ×2 (06:15→13:33)
[2019-12-16 06:21] LABS: Basophils # (auto) 0.02 K/uL (0-0.2); Basophils % (auto) 0.3 %; Eosinophils # (auto) 0.71 K/uL (0-0.5); Hematocrit (blood only) 32.9 % (37-47); Hemoglobin 10.7 g/dL (12.0-16.0); Immature Granulocytes # (auto) 0.01 K/uL (0.00-0.02); Immature Granulocytes % (auto) 0.2 %; Lymphocytes # (auto) 1.97 K/uL (1.2-3.4); Lymphocytes % (auto) 33.2 %; Mean Corpuscular Hemoglobin 28.5 pg (25-34); Mean Corpuscular Hgb Conc 32.5 g/dL (32-36); Mean Corpuscular Volume 87.5 fL (80-100); Mean Platelet Volume 9.4 fL (7.4-10.4); Monocytes # (auto) 0.63 K/uL (0.11-0.59); Monocytes % (auto) 10.6 %; Neutrophils # (auto) 2.59 K/uL (1.4-6.5); Neutrophils % (auto) 43.7 %; Platelet Count 161 K/uL (130-400); RDW Coefficient of Variation 13.4 % (11.5-14.5); Red Blood Count 3.76 M/uL (4.2-5.4); White Blood Count 5.93 K/uL (4.8-10.8)
[2019-12-16 06:57] LABS: C Reactive Protein 1.16 mg/dl (0-0.29); Calcium 9.4 mg/dl (8.5-10.1); Creatinine Clr Calc Pharmacy 129.7 ml/min; Est GFR (African American) 117.7; Est GFR (Non-African American) 101.6; Potassium 3.9 mmol/L (3.5-5.1)
[2019-12-16] MEDS ORDERED: VANCOMYCIN TROUGH SCH (07:30)
[2019-12-16] MEDS: CeleBREX 200 MG CAP PO SCH (08:19)
[2019-12-16] MEDS: DOCUSATE SODIUM 100 MG CAP PO SCH (08:19)
[2019-12-16] MEDS: DULOXETINE HCL 60 MG CAP PO SCH (08:19)
[2019-12-16] MEDS: BuPROPion XL 300 MG TABCR PO SCH (08:20)
[2019-12-16] MEDS: ASPIRIN 81 MG ECTAB PO SCH (08:20)
[2019-12-16] MEDS: MULTIVITAMIN TAB PO SCH (08:20)
[2019-12-16] MEDS: PANTOprazole 40 MG TAB PO SCH (08:21)
[2019-12-16] MEDS: GABAPENTIN 100 MG CAP PO SCH ×2 (08:21→13:33)
--- NOTE | 2019-12-16 09:55 | Infectious Disease Progress Nt ---
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 will need 6 weeks IV abx, will need weekly cbc,cmp, esr, vanco trough while on therapy, maintain 15-20 Admission and Anticipated Discharge Date Admission Date: December 10, 2019 Subjective pt OR cultures growing Serritia and SAFETY SPEC (no sensitivities done). she is tolerating abx. for picc line, afebrile, wbc 5.9 Results & Data ([facility]) Vital Signs (Past 12 Hours) Vital Signs Temp Pulse Resp BP Pulse Ox 12/16/19 06:32 37.1 C 65 16 132/82 99 12/15/19 23:03 36.5 C 75 16 122/75 97 Laboratory Results Microbiology 12/11/19 14:40 Hip,Right Gram Stain - Final 12/11/19 14:40 Hip,Right Aerobic and Anaerobic Culture - Preliminary Coag negative Staphylococcus 12/11/19 14:30 Hip,Right Gram Stain - Final 12/11/19 14:30 Hip,Right Aerobic and Anaerobic Culture - Preliminary Coag negative Staphylococcus 12/11/19 14:30 Hip,Right Gram Stain - Final 12/11/19 14:30 Hip,Right Aerobic and Anaerobic Culture - Preliminary Coag negative Staphylococcus 12/11/19 14:30 Hip,Right Gram Stain - Final 12/11/19 14:30 Hip,Right Aerobic and Anaerobic Culture - Preliminary Coag negative Staphylococcus 12/11/19 14:30 Hip,Right Gram Stain - Final 12/11/19 14:30 Hip,Right Aerobic and Anaerobic Culture - Preliminary Coag negative Staphylococcus 12/11/19 14:20 Hip,Right Gram Stain - Final 12/11/19 14:20 Hip,Right Aerobic and Anaerobic Culture - Preliminary Serratia marcescens 12/11/19 14:20 Hip,Right Gram Stain - Final 12/11/19 14:20 Hip,Right Aerobic and Anaerobic Culture - Preliminary Serratia marcescens 12/10/19 Unknown Urine,Clean Catch Urine Culture - Final No growth - less than 1,000 colonies/mL. PG Care Time/CCT Total # of Minutes Spent Total Time Spent with Patient: Total time spent is greater than 50% in coordination of care (as documented) at patient's floor/unit and/or counseling patient: Coding Level of Care Code 33574 Subseq Hosp Care Lvl 1 Diagnoses Prosthetic joint infection T84.50XA
--- NOTE | 2019-12-16 09:58 | Orthopedic Progress Note ---
Date of Service December 16, 2019 Assessment & Plan (1) Surgical site infection: s/p I+D, revision right hip with head and liner exchange, excision of scar POD #5 -vanco/zosyn -DVT ppx: SCDs, TEDs, ASA 81mg BID -WBAT RLE -PT/OT -f/u IO cultures - positive for gram negative bacilli, coag neg staph, Serratia marcescens -ID recs appreciated, will require 6 weeks IV abx -DC planning - home with IV abx, awaiting final ID recs -am labs as above - hgb 10.7 -Picc line in place Admission and Anticipated Discharge Date Admission Date: December 10, 2019 Subjective Post Operative Progress Note Patient seen sitting in chair at beside, comfortable, denies complaints, pain well controlled, no acute issues. Denies F/C/N/V/SOB/CP Review of Systems Review of Systems: All systems reviewed & are unremarkable except as noted in HPI & below Constitutional: as per Subjective / HPI Physical Exam Physical Exam: RLE NVSI +EHL/FHL/TA/GS SILT grossly, +2 DP pulse, compartments soft NT, dressing cdi. Constitutional: WD/WN, vitals as above Results & Data ([facility]) Vital Signs (Past 12 Hours) Vital Signs Temp Pulse Resp BP Pulse Ox 12/16/19 06:32 37.1 C 65 16 132/82 99 12/15/19 23:03 36.5 C 75 16 122/75 97 Laboratory Results 12/16/19 12/16/19 12/16/19 Range/Units 05:45 05:45 05:45 WBC 5.93 (4.8-10.8) K/uL RBC 3.76 L (4.2-5.4) M/uL Hgb 10.7 L (12.0-16.0) g/dL Hct 32.9 L (37-47) % MCV 87.5 (80-100) fL MCH 28.5 (25-34) pg MCHC 32.5 (32-36) g/dL RDW Std Deviation 43.0 (36.4-46.3) fL RDW Coeff of [place] 13.4 (11.5-14.5) % Plt Count 161 (130-400) K/uL MPV 9.4 (7.4-10.4) fL Immature Gran % (Auto) 0.2 % Neut % (Auto) 43.7 % Lymph % (Auto) 33.2 % [place] % (Auto) 10.6 % Eos % (Auto) 12.0 % Baso % (Auto) 0.3 % Immature Gran # (Auto) 0.01 (0.00-0.02) K/uL Neut # (Auto) 2.59 (1.4-6.5) K/uL Lymph # (Auto) 1.97 (1.2-3.4) K/uL [place] # (Auto) 0.63 H (0.11-0.59) K/uL Eos # (Auto) 0.71 H (0-0.5) K/uL Baso # (Auto) 0.02 (0-0.2) K/uL ESR 18 (0-21) mm/hr Sodium 141 (136-145) mmol/L Potassium 3.9 (3.5-5.1) mmol/L Chloride 107 (98-107) mmol/L Carbon Dioxide 28 (21-32) mmol/L Anion Gap 6.0 (3-11) BUN 9 (7-18) mg/dl Creatinine 0.66 (0.6-1.2) mg/dl Est Cr Clr Drug Dosing 129.7 ml/min Est GFR ( Amer) 117.7 Est GFR (Non-Af Amer) 101.6 BUN/Creatinine Ratio 14.0 (10-20) Glucose 97 (70-99) mg/dl Calcium 9.4 (8.5-10.1) mg/dl C-Reactive Protein 1.16 H (0-0.29) mg/dl Vancomycin Trough (See Comment) mcg/ml 12/15/19 Range/Units 15:40 WBC (4.8-10.8) K/uL RBC (4.2-5.4) M/uL Hgb (12.0-16.0) g/dL Hct (37-47) % MCV (80-100) fL MCH (25-34) pg MCHC (32-36) g/dL RDW Std Deviation (36.4-46.3) fL RDW Coeff of [place] (11.5-14.5) % Plt Count (130-400) K/uL MPV (7.4-10.4) fL Immature Gran % (Auto) % Neut % (Auto) % Lymph % (Auto) % [place] % (Auto) % Eos % (Auto) % Baso % (Auto) % Immature Gran # (Auto) (0.00-0.02) K/uL Neut # (Auto) (1.4-6.5) K/uL Lymph # (Auto) (1.2-3.4) K/uL [place] # (Auto) (0.11-0.59) K/uL Eos # (Auto) (0-0.5) K/uL Baso # (Auto) (0-0.2) K/uL ESR (0-21) mm/hr Sodium (136-145) mmol/L Potassium (3.5-5.1) mmol/L Chloride (98-107) mmol/L Carbon Dioxide (21-32) mmol/L Anion Gap (3-11) BUN (7-18) mg/dl Creatinine (0.6-1.2) mg/dl Est Cr Clr Drug Dosing ml/min Est GFR ( Amer) Est GFR (Non-Af Amer) BUN/Creatinine Ratio (10-20) Glucose (70-99) mg/dl Calcium (8.5-10.1) mg/dl C-Reactive Protein (0-0.29) mg/dl Vancomycin Trough 16.1 (See Comment) mcg/ml
[2019-12-16] MEDS ORDERED: ERTAPENEM SODIUM 1,000 MG in SODIUM CHLORIDE 0.9% 50 ML IV SCH (11:00)
--- NOTE | 2019-12-16 21:47 | Discharge Summary ---
Date of Service December 16, 2019 Admission HPI Per Admitting Provider The patient is a 53-year-old female who presents with worsening draining from right hip surgical wound. Patient had recent right posterior total hip arthroplasty performed 11/14/[address] Krishnamurthy at [facility] [place] [facility]. The patient had an uneventful postoperative period however, she reports that sahzia removed at 2 week and subsequently developed drainage from the incision which has worsened while taking duricef. She was seen in the office 12/09/19 at the request of Dr. Krishnamurthy secondary to unavailability to see or care for the patient. Currently the patient denies F/C/N/V/SOB/CP. Denies pain to right hip or trauma. The decision was made to have the patient directly admitted to [facility] for medical optimization and superficial vs deep I+D right hip with possible head and liner exchange. Principal Diagnosis I+D right total hip replacement, head and liner exchange -Right hip periprosthetic joint infection Discharge Exam RLE NVSI +EHL/FHL/TA/GS SILT grossly, +2 DP pulse, compartments soft NT, dressing cdi. Constitutional WD/WN, vitals as above Discharge Data Allergies Allergy/AdvReac Type Severity Reaction Status Date / Time morphine AdvReac Mild itching Verified 12/10/19 15:49 Consultations 12/10/19 13:01 Consult Internal Medicine Routine 12/11/19 15:44 Consult Infectious Diseases Routine 12/12/19 08:00 Consult Case Management - Discharge Planning Routine Procedures Performed Operation Date: 12/11/19 07:00 Actual Procedures p Right Hip Incision and Drainage(Right) - Franklin Ho DO Hospital Course (1) Surgical site infection: The patient is a 54 -year-old female who presents with infected right hip surgical incision with dehiscence s/p right total hip arthroplasty. I indicated the patient for a superficial vs deep I+D right hip, possible re vision total hip with head and liner exchange, the risks, benefits and complications of the procedure include but not limited to infection, bleeding, damage to bone, nerves, vessels, surrounding soft tissue, may develop blood clots, loss of function, leg length discrepancy, dislocation, failure of the components, loosening of the components, the need for additional surgery and . The patient wished to proceed with surgery at this time and informed consent was obtained. Hospital Course: On 12/11/19 the patient was taken to the operating room, adequate anesthesia administered and underwent a superficial and deep I+D right hip, revision right total hip arthroplasty, head and liner exchange, excision of surgical incision. The patient tolerated the procedure well and was taken to the PACU in stable condition. Post-operatively the patient was started on a DVT ppx medication and given appropriate IV antibiotics. Consults were placed to medical hospitalist for pre-operative clearance, ID, physical therapy, occupational therapy and case management. On POD#1, the patient did well overnight and their pain was well controlled. Labs were drawn and the Hgb was 11.7. The patient progressed well with PT. On POD#2, -vanco/zosyn -DVT ppx: SCDs, TEDs, ASA 81mg BID -WBAT RLE -PT/OT -Hmv drain DC'd -PO XR demonstrates well aligned well fixed total hip prothesis without fractur e/dislocation -am labs - hgb 10.7 -f/u IO cultures - positive for gram negative bacilli, coag neg staph -ID recs appreciated, will require 6 weeks IV abx pending cultures and sensitivities -Dressing changed On POD#3, -vanco/zosyn -DVT ppx: SCDs, TEDs, ASA 81mg BID -WBAT RLE -PT/OT -am labs - hgb 11.5 -f/u IO cultures - positive for gram negative bacilli, coag neg staph -ID recs appreciated, will require 6 weeks IV abx pending cultures and sensitivities -DC planning On POD#4, -vanco/zosyn -DVT ppx: SCDs, TEDs, ASA 81mg BID -WBAT RLE -PT/OT -am labs - hgb 10.7 -f/u IO cultures - positive for gram negative bacilli, coag neg staph, Serratia marcescens -ID recs appreciated, will require 6 weeks IV abx pending cultures and sensitivities -DC planning -will order PICC line On POD#5, -vanco/zosyn -DVT ppx: SCDs, TEDs, ASA 81mg BID -WBAT RLE -PT/OT -f/u IO cultures - positive for gram negative bacilli, coag neg staph, Serratia marcescens -ID recs appreciated, continue vanco, change to ertapenem as once daily dosing. will need 6 weeks IV abx, weekly labs cbc,cmp, esr, vanco trough while on therapy, maintain 15-20 -DC planning - home with IV abx -am labs - hgb 10.7, ESR 18, CRP 1.16 -Picc line in place The patient continued to progress well with PT, their hospital stay was relatively uneventful and they were deemed stable by the orthopedic team and consultants to be discharged home with on 12/16/19. Discharge Instructions: Upon discharge the patient may weight bear as tolerates through their operative extremity. They were instructed to keep the incision clean and dry at all times. The patient may shower but should not submerge the incision, avoid bathing, pools and hot tubes. The patient was given a script for pain medication and should take as instructed. The patient was given a script for DVT ppx ASA 81mg BID and should take as directed. The patient was instructed to not drive or travel for long distances until cleared to do so. If the patient develops any symptoms of fevers, chills, nausea, vomiting, increased redness, swelling, pain or drainage from the surgical site, they should notify the office and/or proceed to the nearest emergency room. The patient should follow up in 10-14 days after surgery for their routine post-operative follow-up appointment and should call the office to confirm the date and time. Total Time Total Time Spent Total Time Spent (In Minutes): >60 minutes Discharge Plan Discharge Items Patient Disposition: Home - Home Health Services Reason For Visit: R HIP DEHISCENCE OF WOUND Discharge Diagnosis: Revision right total hip with head and liner exchange, I+D right hip Condition on Discharge: Good Activity: Per Instructions section Lifting: Wait until after follow-up appointment Bathing: Keep incision dry Bathing Comment: No bathing, pools or hot tubs Sexual Activity: Wait until after follow-up appointment Exercise/Sports: Wait until after follow-up appointment Driving/Machine Use: No driving Weightbearing: Full weightbearing Non-emergency contact: Primary Care Provider and Surgeon Call non-emergency contact if: you have any medication questions, your symptoms worsen, your pain is not controlled, your pain is worsening, your pain is unusual for you, your pain is concerning for you, you have a fever, your temperature is above 101, your wound has increased redness, your wound has increased drainage and your wound pain has increased Follow-up/Referrals: Angus Conner [Primary Care Provider] - 12/23/19 9:30 am (IF YOU NEED TO CHANGE YOUR F/U VISIT; PLEASE CALL [phone] TO CHANGE IT.) Diet: Regular Addtl Attending Provider Instructions: PER DR. KRISHNAMURTHY, IT IS OK TO SKIP THE MIDNIGHT (2400) DOSE OF VANCOMYCIN TONIGHT (12/16/2019) ACTIVITY RECOMMENDATIONS: SELF CARE INSTRUCTIONS AFTER TOTAL HIP REPLACEMENT Until the incision and soft tissues around your hip have healed, there is a possibility that the hip prosthesis could dislocate. A. Observe the following precautions to prevent dislocation: 1. Don't bend your hip greater than 90 degrees. 2. Avoid crossing your legs or ankles while standing or lying. 3. Sit with your feet placed 6 inches apart. 4. When sitting, keep your knees below your hips. Sit on a firm surface, avoid deep, soft chairs and couches. Use an elevated toilet seat in the bathroom. 5. Don't bend over at the waist. Use a long handled shoehorn and a sock aid to help you put on your shoes and socks. A target developer can help you telephone instrument supervisor objects that are too high or too low to reach. 6. Keep car riding to a minimum for at least one month after surgery. B. Your balance may be shaky for a while. Use crutches or a walker until directed by your doctor. C. Use hand rails when walking on stairs. D. Wear low heeled shoes with non-slip soles. E. Be sure that your floors are free of things that could trip you - throw rugs, electrical cords, small objects. Avoid wet and waxed floors, especially with crutches and canes. F. Try to walk several times a day with rest periods between. G. Continue with all the exercises taught to you in the hospital. Again, make walking a part of your daily routine. SPECIAL CARE INSTRUCTIONS: VERY IMPORTANT TO READ AND REVIEW A. You may still be at risk for phlebitis and blood clots. 1. Wear surgical stockings (LENNY hose) for 2 weeks after surgery to improve circulation and reduce swelling. 2. Take Aspirin 81mg twice daily for 4 weeks or as directed by your doctor. This is your blood thinner. 3. High risk patients may be prescribed a stronger blood thinner if necessary. 4. If you are on Coumadin normally, your family doctor/glass inserter should monitor your blood work. Expect a phone call the day of or the day after bloodwork is drawn to adjust your dosage. B. You must take antibiotics before having dental work, bladder, bowel and other surgery. Your doctor will provide you with a permanent card to carry describing precautions. C. Call [facility] if you have a fever, redness or swelling around the incision, cloudy drainage from incision, or sudden increase in pain in your hip, not relieved by your regular pain medication. D. Please call the office at if you have any concerns or questions about your operation or recovery. * YOU MAY SHOWER, NO TUB BATHS UNTIL CLEARED BY YOUR DOCTOR. * WEAR LENNY HOSE 20 HOURS PER DAY FOR 2 WEEKS. * YOU SHOULD USE A WALKER OR CRUTCHES FOR 2-4 WEEKS. THIS WILL HELP PREVENT STRAIN ON YOUR HIP MUSCLE AND ALLOW IT TO HEAL PROPERLY. YOU MAY WEAN TO A CANE TOLERATED. * MOST PATIENTS WILL HAVE HOME NURSING FOR THERAPY. IF YOU DECIDE TO DO OUTPATIENT PHYSICAL THERAPY, PLEASE SCHEDULE THIS 3 TIMES PER WEEK. *PREVENA incisional vac is a special dressing covering your incision. This dressing provides a sterile dry environment while you are healing. The dressing is to be left in place for 7 days post-operatively. Your home nurse or surgeon will remove. If you develop any redness or blisters or have any questions notify your surgeon immediately. DRESSING, PLEASE CALL THE OFFICE . FOLLOW UP VISIT: If appointment is not already scheduled: Please call [facility] to make a follow-up appointment for 2 weeks after your surgery at . Follow up with [facility] (DR JOHNSON) in regards to IV antibiotics, call to make appointment. [phone] Follow up with PCP Pending Studies at Discharge: No Stand-Alone Forms: My [facility] [employer] [facility], Opioid Pain Management, Smoking Cessation Medications and DC Order Prescriptions: New vancomycin in 0.9 % sodium chl 1.25 gram/250 mL solution 1.25 gm IV Q8H Qty: 3000 RF: 0 ertapenem [Invanz] 1 gram recon soln 1 gm IV DAILY 294 Days Qty: 10 RF: 4 sennosides [Senokot] 8.6 mg Tablet 17.2 mg PO HS PRN (Reason: constipation) Qty: 28 RF: 0 aspirin [Ecotrin Low Strength] 81 mg Tablet,Delayed Release (Dr/Ec) 81 mg PO BID Qty: 56 RF: 0 acetaminophen 500 mg Tablet 1,000 mg PO Q8 PRN (Reason: pain/fever) Qty: 90 RF: 0 celecoxib [Celebrex] 200 mg capsule 200 mg PO BID Qty: 28 RF: 0 Continued amlodipine 2.5 mg tablet 2.5 mg PO DAILY RF: 0 amitriptyline 25 mg tablet 25 mg PO DAILY RF: 0 propranolol 80 mg capsule,extended release 24 hr 80 mg PO DAILY RF: 0 gabapentin 100 mg capsule 100 mg PO TID RF: 0 bupropion HCl 300 mg tablet extended release 24 hr 300 mg PO DAILY RF: 0 duloxetine 60 mg capsule,delayed release(DR/EC) 60 mg PO DAILY RF: 0 Changed tramadol 50 mg tablet 50 mg PO Q6H PRN (Reason: pain) Qty: 30 RF: 0 Discharge Orders: Discharge Order (Routine); Ordered 12/16/19 Ordered By: Guy Livingston/Other Patient Handouts: Surgery Prevent DVT After, Hip Safety Toilet Use, Hip Replacement, Hip Replace After Hospital, PICC, Discharge Instructions Caring for Your Peripherally Inserted Central ..., PICC Line Flush Home Admission Data Admit Date/Time: 12/10/19 11:59 Attending Provider: Franklin Ho Admit Provider: Franklin Ho Primary Care Provider: Angus Conner Other Providers: Anmol Strong Jennifer Other Interventions: Discharge Summary Assessment (RN) Last Done: 12/16/19 10:03 DC Date/Time DO NOT enter until pt leaves facility: 12/16/19 18:17
[2019-12-17] MEDS ORDERED: VANCOMYCIN TROUGH ONE (07:30)
== END 2019-12-16 18:17 | disposition home health service (06) | DRG 903 ==
LOC: 3E 11:59
PROC: M.IDHIP (2019-12-11 07:00)